=== PATIENT | female | born 1985 | race Two or more races ===

== ENCOUNTER → 2023-05-06 12:43 | Outpatient (BNVA) | payer OTHER, SELFPAY | PROVIDERS: Visit Provider Physician Assistant ==

== ENCOUNTER 2023-06-11 13:17 | Outpatient (AMB) | payer OTHER, SELFPAY ==
--- NOTE | 2023-06-11 13:28 | MHC.OFFVISWM ---
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 40.1 Boot Liner Maker Required: No Allergies cat dander Allergy (Mild, Verified 05/06/23 13:19) Itchy Eyes dog Allergy (Mild, Uncoded 05/06/23 13:19) Itchy Eyes Medication List - Last Reconciled 06/11/23 by TIA Hicks albuterol sulfate 90 mcg/actuation (Ventolin HFA) 2 puffs inhalation QID PRN budesonide-formoterol 160-4.5 mcg/actuation (Symbicort) 2 puffs inhalation BID montelukast 10 mg PO DAILY naproxen 500 mg PO BID omeprazole 20 mg PO BID HPI HPI Comments History of Present Illness Details Pt is here to start the [facility] weight loss program. She heard about our program from her chairman & co founder at [facility], Dr Pak. Her goal is to lose weight and achieve a healthy lifestyle as well as to improve, if not resolve, obesity related medical conditions, including murali. She reports first being concerned about her weight about a year ago, highest weight to date was 260. Initial weight upon presentation to the [facility] on 05/06/23 was 248.2 pounds with a BMI of 40.1. She has made the effort to cut out soda. Current weight is 244.2 pounds with a BMI of 39.4. She has tried multiple methods of weight loss including fad diets without permanent results. She lives with her family. 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 She has had difficulty with asthma and has had to have multiple courses of prednisone She wakes at:?7am, and goes to bed at?9 pm. Dinner is at 6 pm. Breakfast: coffee w espresso shot, eggs, AM snack: skip Lunch: subway PM snack: skip Dinner: rice, beans, chicken, pork chops After dinner: yogurt Other snacks: none Liquids: 48-56 oz water, no soda, no juice Alcohol/marijuana/tobacco intake: none Exercise: [employer], treadmill, elliptical GERD score: 37 MICHAELA score: 0 ESS score: 12 QOL score: 89 [facility] Surgical History Hx of hernia repair Family History Mother Heart problem Thyroid condition Hypertension Diabetes Father No problems noted. Social History Alcohol intake: never Patient Tobacco Use Status: Never used Tobacco Review of Systems Const All systems reviewed & are unremarkable except as noted in HPI and below Physical Exam Vital Signs: Last Vital Signs Temp 98.8 F 06/11/23 13:38 Pulse 79 06/11/23 13:38 BP 189/65 H 06/11/23 13:38 Pulse Ox 95 06/11/23 13:38 Oxygen Delivery Method Room Air 06/11/23 13:38 BMI result Body Mass Index 39.4 Const General: cooperative, healthy appearing and no acute distress Orientation/consciousness: patient oriented x3 HEENT Head: Yes normal to inspection Ears: hearing grossly normal bilaterally General nose exam: Normal external nose present Face and sinus: Yes normal facial exam Eyes General: appearance normal, both eyes and all related structures Resp Effort & Inspection: normal respiratory effort Auscultation: clear to auscultation bilaterally Cardio Rate: regular rate Rhythm: regular rhythm Heart sounds: S1 normal heart sound present and S2 normal heart sound present GI Inspection: Yes normal to inspection, No distended and Yes obesity Palpation (GI): Soft to palpation, nontender and no guarding Auscultation: normal bowel sounds Skin General skin exam: no rashes or lesions noted Neuro General: patient oriented x3 Extrem General: No edema Psych Appearance: grossly normal Mental Status: mental status grossly normal Speech and movement: Normal speech and movement present Affect: normal affect Attitude: cooperative Assessment & Plan Assessment & Plan (1) Obesity (BMI 30-39.9): Code(s): E66.9 - Obesity, unspecified Plan: This is a?38 yo female who will start our SWL program to prepare for bariatric surgery.? Blood work, h pylori , CXR, ECG, Abd US and UGI have been ordered. She is being scheduled for RD and BH initial consultations. She will start SWL classes and watch the first three videos before her next appointment. ? Adequate sleep of 7-8 hours per night discussed, awakening at 7 am and going to bed at 9 pm ? Purchase body composition analyzer scale (Beto nunez or Yousif recommended) and check weight weekly. The best time to do this is first thing in the morning after going to the bathroom. 1. Nutritional counseling: Be sure to careful read the number of scoops per shake Start with 1 Celebrate Rebuild shake ([facility] [employer] or [employer]), (2 scoop2 in 20 oz low fat unsweetened almond milk) at 8am-10am 2 protein bar (CoolSystemste protein bars at [facility] [employer] or [employer]) at 11pm-1pm and 3pm-5pm. Dinner at 6pm (9 forks of protein and 9 forks of salad/vegetables). Meal to include lean meat (beef, fish, pork, turkey, chicken), cooked vegetables or a salad with olive oil and/or fruits (berries, pears, apples, kiwi). Avoid salt, breads, potatoes, rice, pasta, desserts. Try to drink 64 oz of water daily and avoid soda and juices. ?2. Each shake would be drunk slowly, like coffee in a period of 2 hours. ?3. Cut each bar in 4 pieces and eat each piece in 30 min ?to make each bar last 2 hours. ?4. I emphasized the importance of measuring accurately the food portion and measure it carefully when serving the food on the plate ?5. The meal portions include 9 full-size forks of meat and 9 full-size forks of salad. You always eat the meat portion but you can replace up to half of the forks of salad/vegetables with rice, potatoes or pasta, or a fruit ?if you like. The less you do it the better weight loss will be. ?6. One full-size fork is what can be scooped on the fork without falling aside and not what can be bit with the fork. Use regular forks like those you find in a typical restaurant. ?7.? Please send me weight measurements as soon as possible and then once a week. Always include your diet and exercise plan. Alternatively come weekly at the office for weight checks and send me the measurements. ?8. Exercise counseling: Begin by watching a stretching for beginners video. Start slowly and begin to stretch your muscles. You should do this before and after each exercise session to prevent injury. Please continue to go to [facility] near your home. Ask the software development manager or one of the trainers how to use the machines if you are unfamiliar with them. Start elliptical with a resistance of 2. Increase resistance by 1 every 3 min to your most comfortable resistance with a max resistance of 8. Reduce the resistance by 1 every 3 minutes back down to 2 and repeat cycles for 300 calories. Alternatively, start treadmill with a speed of 3.0 and incline of 0, increasing incline by 1 every 3 minutes to the highest comfortable level (max 6 for now) then decrease in the same fashion. Repeat process to a goal of 300 calories. Goal of 2000 calories burned or more weekly. You may also consider use of the stationary bike. The easiest would be to chose the fat-burn or interval training program on the machine and do this until you reach the 300 calorie goal. Alternatively, you can manually adjust the resistance in a similar fashion as mentioned above, (resistance of 2-8 with a goal speed of 12 mph). Tracking calories is essential. 9. Alternatively start walking outside daily, tracking calories with a goal of 300 calories per day, daily. You can download the paul [employer] which can track your time, distance and calories while walking outside. You press start in the paul when you start and then stop when you are finished. 10.? It is important to avoid for at least 18 months postoperatively and it has been discussed at the information session 11. Please get labs, EKG and chest X-Ray within 1 week. 12. Discussed and answered all questions regarding?obtained consent to participate in the [place] [facility]?Registry. 13. Please follow the diet plan exactly, without any change. If you do not like something about the plan or you feel hungry, you need to communicate with me so I can help you revise the plan. You should not change the plan yourself. Text me at [phone] 14. Goal is to lose at least 12 pounds in the first month 15. Goal is to lose 10% of your weight before surgery, which is about 24 lbs. Ultimate weight goal: 224 lbs before surgery Patient is morbidly obese and is not considered stable at this time.?I spent a total of 70 minutes reviewing/updating records, examining the patient and counseling the patient on weight management as detailed above. Orders: Orders IRON PROFILE Today E66.9 - Obesity, unspecified Ferritin Today E66.9 - Obesity, unspecified TSH reflex Free T4 Today E66.9 - Obesity, unspecified H Pylori Breath Test Today E66.9 - Obesity, unspecified ECG 12 lead EKG Today E66.9 - Obesity, unspecified FL upper GI w air Today E66.9 - Obesity, unspecified Insulin Today E66.9 - Obesity, unspecified Lipid Panel Today E66.9 - Obesity, unspecified Complete Blood Count Auto Diff Today E66.9 - Obesity, unspecified Vitamin B12 and Folate Today E66.9 - Obesity, unspecified Zinc Today E66.9 - Obesity, unspecified Comprehensive Met. Panel Today E66.9 - Obesity, unspecified Vitamin B1 Today E66.9 - Obesity, unspecified Vitamin A Today E66.9 - Obesity, unspecified C Reactive Protein Today E66.9 - Obesity, unspecified PTHI Today E66.9 - Obesity, unspecified Vitamin D 25-OH Total Today E66.9 - Obesity, unspecified Hemoglobin A1c Today E66.9 - Obesity, unspecified US abdomen comp w elastography Today E66.9 - Obesity, unspecified XR chest 2V Today E66.9 - Obesity, unspecified Referrals Behavioral Health Referral E66.9 - Obesity, unspecified Nutrition/Dietitian Referral E66.9 - Obesity, unspecified Coding Level of Care Code New Pt Level 5 (06876) Diagnoses Obesity (BMI 30-39.9) E66.9 Time Spent (min) 70
[2023-06-11 13:38] VITALS: BP 189/65; PULSE 79; TEMP 37.1; O2SAT 95; BMI 39.4
== END 2023-06-11 14:50 | disposition home or self-care (01) ==
PROVIDERS: Visit Provider Physician Assistant Surgical
DX: E66.9 Obesity, unspecified (principal); Z68.39 Body mass index [BMI] 39.0-39.9, adult
CPT/HCPCS: 99205

== ENCOUNTER → 2023-06-11 13:17 | Outpatient (BNVA) | payer OTHER, SELFPAY | PROVIDERS: Visit Provider Physician Assistant Surgical ==

== ENCOUNTER 2023-07-10 13:22 | Outpatient (AMB) | payer OTHER, SELFPAY ==
--- NOTE | 2023-07-10 13:20 | A.OFFWM_ITS ---
Intake Intake Visit Reasons: VIDEO BH Intake Allergies cat dander Allergy (Mild, Verified 05/06/23 13:19) Itchy Eyes dog Allergy (Mild, Uncoded 05/06/23 13:19) Itchy Eyes PFSH Surgical History Hx of hernia repair Family History Mother Heart problem Thyroid condition Hypertension Diabetes Father No problems noted. Social History Alcohol intake: never Patient Tobacco Use Status: Never used Tobacco Behavioral Health Assessment Weight Management Therapy Therapy Notes Details Pt stated that she is looking to have weight loss surgery to help improve her health and quality of life. She reported suffering from severe asthma. Pt denied any mental health health struggles or treatment. She is not in therapy denied every being so. She has no reported hx of problems with drugs or alcohol. Presenting Concerns Referral Source provider Reason for referral weight loss surgery evaluation Precipitating Event obesity Living Situation Current Living Situation Rent At risk of losing current housing? No Satisfied with current living situation? Yes Comments Pt stated that she believes there might be mold in the house. She lives with her children ages 19, 16, 15, and 14 years old. Two of her children have autism and one is severely asthmatic. Food/Weight/Diet Expectations of change weight loss and maintenance History/Relationship with food Pt denied any disordered eating or issues with overeating/emotional eating. She did drink soda and coffee always bt recently stopped. History/Relationship with weight Patient stated that she was always between 160-180lbs until last few years when she struggled with covid and asthma medication. History/Relationship with dieting She reported being able to loose weigh in the past with exercise and diet however has not been successful recently. Binge Eating Do you frequently eat large amounts of food in short periods of time, not feeling physically hungry? No Do you feel out of control when you eat a large amount of food in a short period of time? No Do you eat large amounts of food rapidly and typically alone? No Night Eating Do you wake up at least once during the night to eat? No If you wake up in the night, do you find that it is necessary to eat something in order to fall back asleep? No Do you have little or no appetite in the morning and feel very hungry in the evening, often overeating between dinner and when you go to bed? No Social History Family history and relationship Pt was born and raised in [place], she has been here for 12 years. Her parents live in [place]. She has one sister who lives 5 minutes away. Pt has 4 children. 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 none known Education Preferred learning style Auditory, Verbal, Written, Learn by doing and Visual Currently enrolled in educational program? No Interested in further educational program? 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 Also works at [employer] on the weekends temporarily. 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 No Meaningful activities [employer], kids activities Financial Situation Describe current financial situation Occasional struggle Financial assistance? None Service Service? No Mental Health and Addiction Treatment Current/Past substance abuse? No Current/Past addictive behavior concerns? No Medical and Physical Health Summary Physical exam in the last year? Yes Pain Screening Current pain? No Pain in the last few months? No Medications Is the patient compliant with medications? Yes Does the patient have Waddell Guardian in place? Not applicable Does the patient use complimentary health approaches? No Questionnaires PHQ-9 Over the last 2 weeks, how often have you been bothered by any of the following problems? 1. Little interest or pleasure in doing things: not at all 2. Feeling down, depressed, or hopeless: not at all 3. Trouble falling or staying asleep, or sleeping too much: several days 4. Feeling tired or having little energy: several days 5. Poor appetite or overeating: not at all 6. Feeling bad about yourself - or that you are a failure or have let yourself or your family down: not at all 7. Trouble concentrating on things, such as reading the newspaper or watching television: not at all 8. Moving or speaking so slowly that other people could have noticed. Or the opposite - being so fidgety or restless that you have been moving around a lot more than usual: not at all 9. Thoughts that you would be better off or of hurting yourself in some way: not at all Total score: 2 Depression Screening Interpretation: Negative Depression Screening Done: Yes Source: Developed by Drs. Robin Vanegas, Mary Dorado, Lupillo Elias and colleagues, with an educational maksim from [employer]. Binge Eating Scale Group 1 A. I don't feel self-conscious about my wt. or body size when I'm with others. B. I feel concerned about how I look to others, but it normally does not make me fell disappointed with myself C. I do get self-conscious about my appearance and wt. which makes me feel disappointed in myself. D. I feel very self-conscious about my wt. and frequently I feel intense shame and disgust for myself. I try to avoid social contacts because of my self- consciousness. Response Group 1: A Group 2 A. I don't have any difficulty eating slowly in the proper manner. B. Although I seem to gobble down foods, I don't end up feeling stuffed because of eating to much. C. At times, I tend to eat quickly and then, I feel uncomfortably full afterwards. D. I have the habit of bolting down my food, without really chewing it. When this happens I usually feel uncomfortably stuffed because I've eaten to much. Response Group 2: A Group 3 A. I feel capable to control my eating urges when I want to. B. I feel like I have failed to control my eating more than the average person. C. I feel utterly helpless when it comes to feeling in control of my eating urges. D. Because I feel so helpless about controlling my eating I have become very desperate about trying to get control. Response Group 3: A Group 4 A. I don't have the habit of eating when I'm bored. B. I sometimes eat when I'm bored, but often I'm able to get busy and get my mind off food. C. I have a regular habit of eating when I'm bored, but occasionally, I can use some other activity to get my mind off eating. D. I have a strong habit of eating when I'm bored. Nothing seems to help me breath the habit. Response Group 4: A Group 5 A. I'm usually physically hungry when I eat something. B. Occasionally, I eat something on impulse even though I really am not hungry. C. I have the regular habit of eating foods, that I might not really enjoy, to satisfy a hungry feeling even though physically, I don't need the food. D. Although I'm not physically hungry, I get a hungry feeling in my mouth that only seems to be satisfied when I eat a food, like sandwich, that fills my mouth. Sometimes, when I eat the food to satisfy my mouth hunger, I then spit the food out so I won't gain weight. Response Group 5: A Group 6 A. I don't feel any guilt or self-hate after I overeat. B. After I overeat, occasionally I feel guilt or self-hate. C. Almost all the time I experience strong guilt or self-hate after I overeat. Response Group 6: B Group 7 A. I don't lose total control of my eating when dieting even after periods when I overeat. B. Sometimes when I eat a forbidden food on a diet, I feel like I blew it and eat even more. C. Frequently, I have the habit of saying to myself, I've blown it now, why not go all the way, when I overeat on a diet. When that happens I eat more. D. I have a regular habit of starting a strict diets for myself but I break the diets by going on an eating binge. My life seems to be either a feast or famine. Response Group 7: B Group 8 A. I rarely eat so much food that I feel uncomfortably stuffed afterwards. B. Usually about once a month, I each such a quantity of food, I end up feeling very stuffed. C. I have regular periods during the month when I eat large amounts of food, either at mealtime or at snacks. D. I eat so much food that I regularly feel quite uncomfortable after eating and sometimes a bit nauseous. Response Group 8: A Group 9 A. My level of calorie intake does not go up very high or go down very low on a regular basis. B. Sometimes after I overeat, I will try to reduce my caloric intake to almost nothing to compensate for the excess calories I've eaten. C. I have a regular habit of overeating during the night. It seems that my routine is not to be hungry in the morning but overeat in the evening. D. In my adult years, I have had week-long periods where I practically starve myself. This follows periods when I overeat. It seems I live a life of either feast or famine. Response Group 9: A Group 10 A. I usually am able to stop eating when I want to. I know when enough is enough. B. Every so often, I experience a compulsion to eat which I can't seem to control. C. Frequently, I experience strong urges to eat which I seem unable to control, but at other times I can control my eating urges. D. I feel incapable of controlling urges to eat. I have a fear of not being able to stop eating voluntarily. Response Group 10: A Group 11 A. I don't have any problem stopping eating when I feel full. B. I usually can stop eating when I feel full but occasionally overeat leaving me feeling uncomfortably stuffed. C. I have a problem stopping eating once I start and usually I feel uncomfortably stuffed after I eat a meal. D. Because I have a problem not being able to stop eating when I want, I sometimes have to induce vomiting to relieve my stuffed feeling. Response Group 11: A Group 12 A. I seem to eat just as much when I'm with others, Family social gatherings as when I'm by myself. B. Sometimes, when I'm with other persons, I don't eat as much as I want to eat because I'm self-conscious about my eating. C. Frequently, I eat only a small amount of food when others are present, because I'm very embarrassed about my eating. D. I feel so ashamed about overeating that I pick times to overeat when I know no one will see me. I feel like a closet eater. Response Group 12: A Group 13 A. I eat three meals a day with only an occasional between meal snack. B. I eat 3 meals a day, but I also normally snack between meals. C. When I am snacking heavily, I get in the habit of skipping regular meals. D. There are regular periods when I seem to be continually eating, with no planned meals. Response Group 13: B Group 14 A. I don't think much about trying to control unwanted eating urges. B. At least some of the time, I feel my thoughts are pre-occupied with trying to control my eating urges. C. I feel that frequently I spend much time thinking about how much I ate or about trying not to eat anymore. D. It seems to me that most of my waking hours are pre-occupied by thoughts about eating or not eating. I feel like I'm constantly struggling not to eat. Response Group 14: B Group 15 A. I don't think about food a great deal. B. I have strong craving for food but they last only for brief periods of time. C. I have days when I can't seem to think about anything else but food. D. Most of my days seem to be pre-occupied with thoughts about food. I feel like I live to eat. Response Group 15: B Group 16 A. I usually know whether or not I'm physically hungry. I take the right portion of food to satisfy me. B. Occasionally, I feel uncertain about knowing whether or not I'm physically hungry. A these times it's hard to know how much food I should take to satisfy me. C. Even though I might know how many calories I should eat, I don't have any idea what is a normal amount of food for me. Response Group 16: A Binge Eating Score: 5 Score less than 17 Minimal Risk Score between 18-26 Moderate Risk Score between 27-46 High Risk Assessment & Plan Assessment & Plan (1) Adjustment disorder, unspecified: Code(s): F43.20 - Adjustment disorder, unspecified Plan Patient has no mental health issues or reported difficulties with food. She reported mostly average weight for her or slightly overweight until her asthma worsened. She is cleared for surgery when ready. Telehealth Telehealth Location of provider rendering services: other Location of patient: address on file Patient Identification confirmed using: Name, : Yes Telehealth method: video Patient verbally consented to treatment: Yes Patient verbally consented to billing insurance company: Yes Patient informed of any privacy concerns related to visit: Yes Minutes spent on Phone/Video with Pt.: 45 Coding Level of Care Code Tele Psy Diag Eval (24480) Diagnoses Adjustment disorder, unspecified F43.20 Time Spent (min) 45
== END 2023-07-10 13:41 | disposition home or self-care (01) ==
LOC: HO.HBST 13:22
PROVIDERS: Visit Provider Counselor Mental Health
DX: F43.20 Adjustment disorder, unspecified (principal)
CPT/HCPCS: 90791

== ENCOUNTER → 2023-07-10 13:22 | Outpatient (BNVA) | payer OTHER, SELFPAY | PROVIDERS: Visit Provider Counselor Mental Health ==

== ENCOUNTER 2023-07-14 08:07 | Outpatient (REF) | payer OTHER, SELFPAY ==
--- NOTE | ~2023-07-14 | US_ITS ---
EXAMINATION: US COMPLETE ABDOMEN WITH LIVER ELASTOGRAPHY CLINICAL INFORMATION: Obesity. COMPARISON: None available. TECHNIQUE: Real-time imaging of the abdominal viscera. Noninvasive ultrasound liver fibrosis assessment is performed using Kerri ElastPQ point quantification shear wave elastography (2D-SWE) with a C5-2 MHz transducer. Multiple elastography samples are obtained. FINDINGS: PANCREAS: Largely obscured by overlapping bowel gas. ABDOMINAL AORTA: The proximal segment is obscured by overlapping bowel gas. The middle and distal aortic segments are normal in caliber. INFERIOR VENA CAVA: Visualized portions are normal. LIVER: Normal. The liver demonstrates normal size, contour and echogenicity. No focal lesion or intrahepatic biliary duct dilatation. The right lobe measures 14.9 cm in length. The left lobe measures 9.2 cm in length. Portal flow is towards the liver (hepatopetal). Shear wave liver elastography median stiffness is 1.3 m/s (reference: normal median stiffness is 1.3 m/s or less). IQR/median stiffness to assess sampling precision is 0.08 (reference: good quality data set is IQR/median stiffness of 0.15 or less). GALLBLADDER: Normal. The gallbladder is physiologically distended without evidence of stones, sludge, polyps, wall thickening or pericholecystic fluid. COMMON BILE DUCT: Normal in caliber measuring 0.3 cm in diameter. RIGHT KIDNEY: Normal. No hydronephrosis. No renal calculi or focal parenchymal lesions. The kidney measures 10.6 cm in maximum dimension. LEFT KIDNEY: Normal. No hydronephrosis. No renal calculi or focal parenchymal lesions. The kidney measures 11.6 cm in maximum dimension. SPLEEN: Normal. The spleen measures 10.4 cm in maximum dimension. FREE FLUID: None. US/US abdomen comp w elastography IMPRESSION: 1. Liver elastography: 2. Technically limited ultrasound examination of the pancreas and abdominal great vessels. REFERENCE: Society of Radiologists in Ultrasound Liver Stiffness Thresholds (2020): LIVER STIFFNESS THRESHOLDS: *Liver Stiffness equal or less than 1.3 m/s: High probability of being normal. *Liver Stiffness less than 1.7 m/s: In the absence of other known clinical signs, rules out compensated advanced chronic liver disease. *Liver Stiffness 1.7-2.1 m/s: Suggestive of compensated advanced chronic liver disease but need further test for confirmation. *Liver Stiffness over 2.1 m/s: Rules in compensated advanced chronic liver disease. *Liver Stiffness over 2.4 m/s: Suggestive of clinically significant portal hypertension. QUALITY OF DATA SET: *IQR/Median value equal or less than 0.15 implies a quality data set. *IQR/Median value over 0.15 implies a poor quality data set. SIGNIFICANT CHANGE FROM PRIOR EXAM: Significant change if liver stiffness measurement is 10% or greater from prior exam. OTHER CONSIDERATIONS: The stage of liver fibrosis may be overestimated in the setting of acute hepatitis, liver inflammation, elevated liver function tests, hepatic vascular congestion, obstructive cholestasis, non-fasting state, and infiltrative diseases such as amyloidosis and lymphoma. In some patients with NAFLD, the liver stiffness thresholds for compensated advanced chronic liver disease may be lower. In causes other than viral hepatitis and NAFLD, liver stiffness thresholds are not well established.
[2023-07-14 09:27] LABS: MANUAL DIFF FLAG NO
[2023-07-14 10:24] LABS: Basophils Absolute Auto 0.1 X10*3/uL (0.0-0.2); Basophils Percent Auto 0.9 % (0-2); Eosinophils Absolute Auto 0.5 X10*3/uL (0.0-0.4); Eosinophils Percent Auto 5.3 % (0-4); Hematocrit 39.3 % (37.0-47.0); Hemoglobin 12.2 g/dl (12.0-16.0); Imm Gran Abs Auto 0.03 X10*3/uL (0.00-0.03); Imm Gran Pct Auto 0.3 % (0.0-0.4); Lymphocytes Absolute Auto 2.4 X10*3/uL (1.2-4.9); Lymphocytes Percent Auto 27.6 % (20-40); Mean Corpuscular Hemoglobin 27.8 pg (27.0-33.0); Mean Corpuscular Volume 89.5 fL (80.0-98.0); Mean Platelet Volume 9.9 fL (9.4-12.3); Monocytes Absolute Auto 0.5 X10*3/uL (0.1-1.2); Monocytes Percent Auto 6.1 % (2-11); Neutrophils Absolute Auto 5.2 x10*3/uL (2.0-8.3); Neutrophils Percent Auto 59.8 % (45-73); Platelet Count 354 X10*3/uL (160-400); Red Blood Count 4.39 X10*6/uL (4.20-5.50); Red Cell Distribution Width 11.9 % (11.0-16.0); White Blood Count 8.7 X10*3/uL (4.8-10.8)
[2023-07-14 10:31] LABS: Estimated Average Glucose 94 mg/dL; Hemoglobin A1c % 4.9 % (<6.0)
[2023-07-14 12:32] LABS: Alanine Aminotransferase 16 U/L (0-31); Albumin Level 4.1 g/dL (3.5-5.0); Alkaline Phosphatase 85 U/L (39-117); Anion Gap 13 (12-20); Aspartate Amino Transferase 16 U/L (5-31); Bilirubin Total 0.4 mg/dL (0.0-1.0); Blood Urea Nitrogen 12 mg/dL (9-16); C Reactive Protein 0.99 mg/dL (< or = 0.50); Calcium 9.3 mg/dL (8.4-10.2); Carbon Dioxide 24 mmol/L (22-29); Chloride 107 mmol/L (96-108); Cholesterol 167 mg/dL (<200); Estimated Glomerular Filt Rate > 60; Glucose Random 84 mg/dL (60-115); HDL Cholesterol 40 mg/dL (>40); Iron 84 mcg/dL (30-160); LDL Cholesterol Calculated 109 mg/dL (<100); Percent Iron Saturation 38 % (15-50); Sodium 140 mmol/L (135-145); Total Iron Binding Capacity 221 mcg/dL (228-428); Total Protein 7.6 g/dL (6.5-8.0); Triglycerides 90 mg/dL (<150); Unsaturated Iron Binding 137 ug/dL
[2023-07-14 12:46] LABS: Folate 10.8 ng/mL (> or = 4.0); Vitamin B12 548 pg/mL (200-900)
[2023-07-14 12:59] LABS: Ferritin 95 ng/mL (10-122); Insulin 14 uU/mL (2-29); TSH reflex Free T4 1.58 uIU/mL (0.32-4.0); Vitamin D 25-OH Total 16.2 ng/mL (>30)
[2023-07-16 02:44] LABS: Calcium (PTHI) 9.6 mg/dL (8.6-10.2); PTHI 62 pg/mL (16-77)
[2023-07-17 06:03] LABS: Zinc 68 mcg/dL (60-130)
[2023-07-17 20:39] LABS: Vitamin A 31 mcg/dL (38-98)
[2023-07-19 10:28] LABS: Vitamin B1 11 nmol/L (8-30)
== END 2023-07-14 08:08 | disposition home or self-care (01) ==
LOC: HO.US 08:07
PROVIDERS: Visit Provider Physician Assistant Surgical
DX: E66.9 Obesity, unspecified (principal)
CPT/HCPCS: 36415; 76705; 76981; 80053; 80061; 82306; 82607; 82728; 82746; 83036; 83525; 83540; 83970; 84425; 84443; 84590; 84630; 85025; 86140

== ENCOUNTER 2023-07-17 08:25 | Outpatient (REF) | payer OTHER, SELFPAY ==
--- NOTE | ~2023-07-17 | XR_ITS ---
EXAMINATION: XR CHEST CLINICAL INFORMATION: Obesity unspecified COMPARISON: None available. TECHNIQUE: 2 views of the chest were obtained. FINDINGS: There is no gross pneumothorax. Evaluation of the cardiomediastinal silhouette is limited due to patient rotation, although heart size is normal. No pleural effusion. Mild degenerative changes in the thoracic spine. Linear radiodense devices project over the bilateral breasts shadows and correlation with the clinical exam recommended to confirm etiology and location. No focal consolidation to suggest pneumonia. XR/XR chest 2V IMPRESSION: Linear radiodense devices project over the bilateral breasts shadows and correlation with the clinical exam recommended to confirm etiology and location. No focal consolidation to suggest pneumonia.
--- NOTE | 2023-07-17 08:31 | ECG_ITS ---
Test Reason : obesity Blood Pressure : / mmHG Vent. Rate : 070 BPM Atrial Rate : 070 BPM P-R Int : 166 ms QRS Dur : 078 ms QT Int : 362 ms P-R-T Axes : 061 044 037 degrees QTc Int : 390 ms Normal sinus rhythm Normal ECG No previous ECGs available Referred By: Rogelio Christensen Electronically Signed By:VENU BEYER MD
[2023-07-20 10:10] LABS: H Pylori Breath Test Negative (Negative)
== END 2023-07-17 08:26 | disposition home or self-care (01) ==
LOC: HO.XRAY 08:25
PROVIDERS: Visit Provider Physician Assistant Surgical
DX: E66.9 Obesity, unspecified (principal); Z11.0 Encounter for screening for intestinal infectious diseases
CPT/HCPCS: 71046; 83013; 93005; 99211

== ENCOUNTER 2023-08-26 07:44 | Outpatient (REF) | payer OTHER, SELFPAY ==
--- NOTE | ~2023-08-26 | FL_ITS ---
EXAMINATION: XR FLUOROSCOPY UPPER GI WITH AIR CLINICAL INFORMATION: Preop evaluation prior to bariatric surgery COMPARISON: None TECHNIQUE: Fluoroscopic air contrast upper GI examination was performed utilizing standard techniques with thin and thick barium and effervescent granules. Numerous spot images were obtained. FINDINGS: Dual and single contrast images of the esophagus demonstrate normal caliber, contour, and mucosal pattern. No evidence of stricture, mass, or ulcerations identified. Primary esophageal peristalsis was normal. Mild nonpropulsive tertiary contractions are seen in the distal esophagus. A small type I hiatal hernia is present. Gastroesophageal reflux is seen up to level of thoracic inlet. Dual contrast and single contrast images of the stomach demonstrated grossly normal contour of the stomach with irregular pattern of mucosal seen predominantly in the fundus and body, highly suspicious for erosive or atrophic gastritis. No definite ulcers seen. Contrast freely passed into the gastric antrum and duodenal bulb without delay. Single and air-contrast images of the duodenal bulb demonstrate no abnormality. The duodenal sweep has a normal appearance, course, and mucosal fold appearance. The imaged proximal jejunum has a normal fold pattern and caliber. FLUOROSCOPY TIME: 4 minutes 32 seconds. Number of Spot Images: 17 Number of Cine: 8 DOSE AREA PRODUCT: 1541 uGy-m2 (microgray-meter squared) FL/FL upper GI w air IMPRESSION: 1. Mild nonpropulsive tertiary contractions of the distal esophagus consistent with mild esophageal dysmotility 2. Small type I hiatal hernia 3. Significant gastroesophageal reflux. 4. Findings of the fundus and body of the stomach highly suspicious for atrophic and/or erosive gastritis. Recommend correlation with EGD. This procedure was performed by Chandler Beasley PA-C, and supervised by Dr. Bagley
== END 2023-08-26 07:45 | disposition home or self-care (01) ==
LOC: HO.XRAY 07:44
PROVIDERS: Visit Provider Physician Assistant Surgical
DX: E66.9 Obesity, unspecified (principal)
CPT/HCPCS: 74246

== ENCOUNTER → 2023-08-26 07:45 | Outpatient (BNV) | payer OTHER, SELFPAY | PROVIDERS: Visit Provider Radiology Diagnostic Radiology | DX: Z01.818 Encounter for other preprocedural examination (principal); E66.9 Obesity, unspecified | CPT/HCPCS: 74246 ==

== ENCOUNTER 2023-10-25 19:08 | Emergency (ER) | payer OTHER, SELFPAY ==
--- NOTE | ~2023-10-25 | CT_ITS ---
EXAMINATION: CT HEAD WITHOUT CONTRAST CLINICAL INFORMATION: Left arm and leg paresthesia. COMPARISON: None available. TECHNIQUE: Contiguous axial imaging was performed from the skull base to vertex without intravenous administration of contrast. This CT examination was performed using dose optimization techniques as appropriate, variously including the following: *Automated exposure control. *Adjustment of mA and/or kV according to patient size (this includes techniques or standardized protocols for targeted exams where dose is matched to indication/reason for exam; i.e. extremities or head). *Use of iterative reconstruction technique. DLP: 774 mGy-cm FINDINGS: There is no evidence of acute intracranial hemorrhage or edematous territorial infarction. Borjas-white matter differentiation is preserved. There is no abnormal attenuation within the brain parenchyma. The ventricles are normal in morphology and size. No evidence for obstructive hydrocephalus. No abnormal mass effect or midline shift. No extra-axial fluid collections. No acute soft tissue or osseous abnormalities. Moderate mucosal thickening of the paranasal sinuses. The mastoid air cells and middle ear cavities are clear. CT/CT head/brain wo IV con IMPRESSION: 1. No evidence of acute intracranial hemorrhage or edematous territorial infarction. 2. Moderate sinonasal mucosal disease.
[2023-10-25 19:16] VITALS: BP 108/73; PULSE 89; RESP 20; TEMP 36.9; O2SAT 98; BMI 37.3
--- NOTE | 2023-10-25 19:24 | ECG_ITS ---
Test Reason : WEKANESS Blood Pressure : / mmHG Vent. Rate : 076 BPM Atrial Rate : 076 BPM P-R Int : 152 ms QRS Dur : 080 ms QT Int : 344 ms P-R-T Axes : 068 029 025 degrees QTc Int : 387 ms Normal sinus rhythm Normal ECG When compared with ECG of 17-JUL-2023 08:30, No significant change was found Referred By: Generic ED Physician Electronically Signed By:Andrea Alexander
--- NOTE | 2023-10-25 19:49 | MHC.EDTECH ---
Patient brought into triage area, EKG taken per order and signed by provider. Labs and a urine sample obtained and sent to lab,patient brought to ED bed 8
[2023-10-25 19:53] LABS: MANUAL DIFF FLAG NO
[2023-10-25 19:59] LABS: Appearance Urine Clear; Basophils Absolute Auto 0.1 X10*3/uL (0.0-0.2); Color Urine Yellow; Eosinophils Absolute Auto 0.4 X10*3/uL (0.0-0.4); Eosinophils Percent Auto 4.4 % (0-4); Glucose Urine UA Negative (Negative); Hematocrit 38.2 % (37.0-47.0); Hemoglobin 11.9 g/dl (12.0-16.0); Imm Gran Abs Auto 0.03 X10*3/uL (0.00-0.03); Imm Gran Pct Auto 0.3 % (0.0-0.4); Leukocyte Esterase Urine Trace (Negative); Lymphocytes Absolute Auto 2.7 X10*3/uL (1.2-4.9); Lymphocytes Percent Auto 30.8 % (20-40); Mean Corpuscular HGB Conc 31.2 g/dl (31.0-35.0); Mean Corpuscular Hemoglobin 27.6 pg (27.0-33.0); Mean Corpuscular Volume 88.6 fL (80.0-98.0); Mean Platelet Volume 9.6 fL (9.4-12.3); Monocytes Absolute Auto 0.9 X10*3/uL (0.1-1.2); Monocytes Percent Auto 10.4 % (2-11); Neutrophils Absolute Auto 4.7 x10*3/uL (2.0-8.3); Neutrophils Percent Auto 53.1 % (45-73); Nitrite Urine Negative (Negative); PH 6.5 (5.0-9.0); Platelet Count 326 X10*3/uL (160-400); Red Blood Count 4.31 X10*6/uL (4.20-5.50); Red Cell Distribution Width 12.3 % (11.0-16.0); UMIC TRIGGER UACC YES; Urine Blood Large (3+) (Negative); Urine Ketones Negative (Negative); Urine Protein Negative (Neg-Trace); White Blood Count 8.8 X10*3/uL (4.8-10.8)
[2023-10-25 20:01] LABS: UPreg QC Valid YES; Urine Pregnancy NEGATIVE (NEGATIVE)
[2023-10-25 20:02] VITALS: BP 126/78; PULSE 74
--- NOTE | 2023-10-25 20:03 | ED_ITS ---
HPI - General Adult General Chief complaint: Weakness Stated complaint: feels weak/dizzy Time Seen by Provider: 10/25/23 19:55 Source: patient Mode of arrival: ambulatory Limitations: no limitations History of Present Illness HPI narrative: patient comes to the emergency room with multiple complaints. Patient complaining of headache, sinus pressure, coughing, diffuse body aches, feeling unsteady after drinking 1 sip of alcohol with azithromycin. Complaining of left arm and leg tingling sensation. Patient states that her son recently tested positive for COVID and since then she has had URI symptoms. Patient states that the main reason she came is because any time that she stands up, she feels like she is going to pass out Related Data Home Medications Medication Instructions Recorded Confirmed albuterol sulfate 90 mcg/actuation 2 puff inhalation QID PRN cough 05/06/23 06/11/23 aerosol inhaler (Ventolin HFA) budesonide-formoterol HFA 160 2 puff inhalation BID 05/06/23 06/11/23 mcg-4.5 mcg/actuation aerosol inhaler (Symbicort) naproxen 500 mg tablet 500 mg PO BID 05/06/23 06/11/23 omeprazole 20 mg tablet,delayed 20 mg PO BID 05/06/23 06/11/23 release montelukast 10 mg tablet 10 mg PO DAILY 06/11/23 06/11/23 Previous Rx's Medication Instructions Recorded vitamin A palmitate 3,000 mcg 3,000 mcg PO DAILY 90 days #90 caps 07/18/23 (10,000 unit) capsule cholecalciferol (vitamin D3) 125 125 mcg PO DAILY 90 days #90 caps 10/14/23 mcg (5,000 unit) capsule cefuroxime axetil 500 mg tablet 500 mg PO BID #14 tabs 10/25/23 nirmatrelvir 300 mg (150 mg See Rx Instructions PO .COMPLEX 10/25/23 x2)-ritonavir 100 mg tablet,dose #30 ea pack (Paxlovid) Allergies Allergy/AdvReac Type Severity Reaction Status Date / Time cat dander Allergy Mild Itchy Eyes Verified 10/25/23 19:16 diphenhydramine Allergy Anaphylaxis Verified 10/25/23 19:16 [From Benadryl] midazolam [From Versed] Allergy Anaphylaxis Verified 10/25/23 19:16 dog Allergy Mild Itchy Eyes Uncoded 05/06/23 13:19 Review of Systems 2 Review of Systems: Constitutional : No Weight loss, No Fever, No Chills, No Night Sweats, complaining of fatigue and generalized malaise ENT/Mouth : No Hearing loss, No Ear Pain, complaining of nasal congestion, sinus pain, rhinorrhea, stuffy nose Eyes: No Eye Pain, No Swelling, No Redness, No Foreign Body, No Discharge, No Vision Changes Cardiovascular : No Chest Pain, No SOB, No Dyspnea on Exertion, No Orthopnea, No Edema, No Palpitations Respiratory : No Cough, No Sputum, No Wheezing, No Smoke Exposure, No Dyspnea Gastrointestinal : No Nausea, No Vomiting, No Diarrhea, No Constipation, No abdominal Pain, No Hematochezia, No Melena Genitourinary : no irregular bleeding, No Dysuria, No Urinary Frequency, No Hematuria, No Urinary Incontinence, No Urgency, No Flank Pain, No Urinary Flow Changes, No Hesitancy Musculoskeletal : complaining of diffuse body aches, no swelling Skin : No Skin Lesions, No rash Neuro : No Weakness, No Numbness, complaining of i left arm left leg Paresthesias, No Loss of Consciousness, No Dizziness, No Headache Psych : No Anxiety/Panic, No Depression, No SI/HI/AH/VH, No Social Issues, Heme/Lymph: No Bruising, No Bleeding,No Lymphadenopathy Endocrine : No Polyuria, No Polydipsia, No Temperature Intolerance [facility] Past Medical History Medical History (Updated 10/25/23 @ 22:40 by Mirta Beck MD) Diabetes Hypertension Adjustment disorder, unspecified Surgical History Hx of hernia repair Family History Family History Mother Heart problem Thyroid condition Hypertension Diabetes Father No problems noted. Social History Social History Alcohol intake: never Patient Tobacco Use Status: Never used Tobacco Advance Directives: No Advance Directives Information Provided: No Physical Exam ED Vital Signs: Vital Signs - 24 hr 10/25/23 19:16 10/25/23 20:02 10/25/23 20:04 Temperature 98.4 F Pulse Rate 89 74 83 Respiratory Rate 20 Blood Pressure 108/73 126/78 133/88 Pulse Oximetry 98 Oxygen Delivery Method Room Air 10/25/23 20:06 10/25/23 20:07 Temperature 98.3 F Pulse Rate 83 74 Respiratory Rate 16 Blood Pressure 136/90 H 126/78 Pulse Oximetry 98 Oxygen Delivery Method Room Air BMI result Body Mass Index 37.3 Const Other: Appearance: Alert. Oriented X3. No acute distress. Eyes: Pupils equal, round and reactive to light. ENT: Pharynx normal. Neck: Normal inspection. Neck supple. No lymph nodes noted. No crepitus CVS: Normal heart rate and rhythm. Pulses normal. Normal S1 and S2 Respiratory: No respiratory distress. Breath sounds normal. No Wheezing. No rales Abdomen: Soft and nontender. No rigidity. No distention. Skin: Skin warm and dry. Normal skin color. Normal skin turgor. Extremities: No lower extremity edema. No Lacerations. No Rash Neuro: Oriented X 3. No motor deficit. No sensory deficit. Moving all extremities. No slurred speech. CN 2 through 12 grossly intact Psych: calm, cooperative, normal affect NIH Stroke Scale Level of Consciousness: Alert Level of Consciousness Questions: Answers both questions correctly Level of Consciousness Commands: Performs both tasks correctly Best Gaze: Normal Visual: No visual loss Facial Palsy: Normal Motor Arm (Right): No drift Motor Arm (Left): No drift Motor Leg (Right): No drift Motor Leg (Left): No drift Limb Ataxia: Absent Sensory: Normal Best Language: No aphasia Dysarthia: Normal Extinction and Inattention: No abnormality Score: 0 Course Course Course Narrative: - all of patient's labs and imaging pending Medical Decision Making Medical Decision Making MDM Narrative: = my interpretation of labs, normal hematology and chemistry analysis positive for UTI, patient tested positive for COVID -my interpretation of CT scan of the head: No obvious intracranial abnormality -patient has normal function sensation and strength in all extremities, normal gait -patient has been symptomatic for 2 days with COVID, I discussed with the patient's the options of treating symptomatically versus with antiviral, patient opted to try the antiviral medication Differential Diagnosis Differential Diagnoses: The differential diagnosis associated with the presentation includes (TIA, CVA, UTI, COVID) Admission/Observation Consideration of admission/observation: Escalation of care including admission/observation considered (Given patient's symptoms, admission was considered) Lab Data MDM Lab Attestation statement: I reviewed the patient's lab results. 10/25/23 19:47 10/25/23 19:47 Labs: Lab Results 10/25/23 Range/Units 19:47 WBC 8.8 (4.8-10.8) X10*3/uL RBC 4.31 (4.20-5.50) X10*6/uL Hgb 11.9 L (12.0-16.0) g/dl Hct 38.2 (37.0-47.0) % MCV 88.6 (80.0-98.0) fL MCH 27.6 (27.0-33.0) pg MCHC 31.2 (31.0-35.0) g/dl RDW 12.3 (11.0-16.0) % Plt Count 326 (160-400) X10*3/uL MPV 9.6 (9.4-12.3) fL Immature Gran % (Auto) 0.3 (0.0-0.4) % Neut % (Auto) 53.1 (45-73) % Lymph % (Auto) 30.8 (20-40) % [place] % (Auto) 10.4 (2-11) % Eos % (Auto) 4.4 H (0-4) % Baso % (Auto) 1.0 (0-2) % Lymph # (Auto) 2.7 (1.2-4.9) X10*3/uL [place] # (Auto) 0.9 (0.1-1.2) X10*3/uL Eos # (Auto) 0.4 (0.0-0.4) X10*3/uL Baso # (Auto) 0.1 (0.0-0.2) X10*3/uL Abs Immat Gran (auto) 0.03 (0.00-0.03) X10*3/uL Absolute Neuts (auto) 4.7 (2.0-8.3) x10*3/uL Absolute Nucleated RBC 0.000 (0.0-0.012) X10*3/uL Nucleated RBC % (auto) 0.0 (0.0-0.2) /100WBC Sodium 143 (135-145) mmol/L Potassium 3.3 (3.3-5.1) mmol/L Chloride 107 (96-108) mmol/L Carbon Dioxide 25 (22-29) mmol/L Anion Gap 14 (12-20) BUN 10 (9-16) mg/dL Creatinine 0.95 (0.5-1.4) mg/dL Estim Creat Clear Calc 102.5 Estimated GFR > 60 Random Glucose 74 (60-115) mg/dL Calcium 9.3 (8.4-10.2) mg/dL Total Bilirubin 0.2 (0.0-1.0) mg/dL AST 15 (5-31) U/L ALT 15 (0-31) U/L Alkaline Phosphatase 96 (39-117) U/L Troponin I High Sens < 2.7 (<3.5-17.0) ng/L Total Protein 7.7 (6.5-8.0) g/dL Albumin 4.1 (3.5-5.0) g/dL Urine Color Yellow Urine Appearance Clear Urine pH 6.5 (5.0-9.0) Ur Specific [place] 1.010 (1.005-1.025) Urine Protein Negative (Neg-Trace) mg/dL Urine Glucose (UA) Negative (Negative) mg/dL Urine Ketones Negative (Negative) mg/dL Urine Blood Large (3+) H (Negative) Urine Nitrite Negative (Negative) Ur Leukocyte Esterase Trace H (Negative) Urine RBC >20 H (0-2) /HPF Urine WBC 0-5 (0-5) /HPF Ur Squamous Epith Cells 0-2 (0-2) /HPF Urine Bacteria None Seen (None Seen) Hyaline Casts 0-2 (0-2) /LPF Urine Test NEGATIVE (NEGATIVE) COVID-19 (YOSHI) Positive A (Negative) COVID-19 Clin Com See Note Independent Interpretation I performed an independent interpretation of an: CT Scan Interpretation: FINDINGS: There is no evidence of acute intracranial hemorrhage or edematous territorial infarction. Borjas-white matter differentiation is preserved. There is no abnormal attenuation within the brain parenchyma. The ventricles are normal in morphology and size. No evidence for obstructive hydrocephalus. No abnormal mass effect or midline shift. No extra-axial fluid collections. No acute soft tissue or osseous abnormalities. Moderate mucosal thickening of the paranasal sinuses. The mastoid air cells and middle ear cavities are clear. CT/CT head/brain wo IV con IMPRESSION: 1. No evidence of acute intracranial hemorrhage or edematous territorial infarction. 2. Moderate sinonasal mucosal disease. Radiology Impression Discussion of test interpretation with radiology: I have reviewed the radiologist's reading. (As above) Critical Care Time Critical Care Time Critical Care Time: Yes Total Critical Care Time: 75 Attestation: I have personally provided critical care time. Time includes review of lab data, radiology results, discussion with consultants, and monitoring for potential decompensation. Intervention performed as documented. Discharge Plan Discharge Clinical Impression: COVID-19, UTI (urinary tract infection) Patient Disposition: Home, Self-Care Instructions: Urinary Tract Infection in Women (ED), COVID-19 (Coronavirus Disease 2019) (ED) Additional Instructions: Please follow-up with your primary care physician tomorrow. If you have any worsening or new symptoms, please return to the emergency room or call 911 Prescriptions: New Paxlovid 300 mg (150 mg x 2)-100 mg tablets,dose pack See Rx Instructions .ROUTE .COMPLEX Qty: 30 0RF Rx Instructions: take TWO 150 mg tablets of nirmatrelvir with ONE 100 mg tablet of ritonavir twice daily for 5 days cefuroxime axetil 500 mg tablet 500 mg PO BID Qty: 14 0RF No Action vitamin A palmitate 3,000 mcg (10,000 unit) capsule 3,000 mcg PO DAILY 90 Days Qty: 90 1RF cholecalciferol (vitamin D3) 125 mcg (5,000 unit) capsule 125 mcg PO DAILY 90 Days Qty: 90 0RF naproxen 500 mg tablet 500 mg PO BID omeprazole 20 mg tablet,delayed release (DR/EC) 20 mg PO BID budesonide-formoterol [Symbicort] 160-4.5 mcg/actuation HFA aerosol inhaler 2 puff inhalation BID albuterol sulfate [Ventolin HFA] 90 mcg/actuation HFA aerosol inhaler 2 puff inhalation QID PRN (Reason: cough) montelukast 10 mg tablet 10 mg PO DAILY Stand Alone Forms: Work/School Release
[2023-10-25 20:04] VITALS: BP 133/88; PULSE 83
[2023-10-25 20:04] LABS: Bacteria Urine None Seen (None Seen); Hyaline Casts Urine 0-2 /LPF (0-2); RBC Urine >20 /HPF (0-2); Squamous Epithelial Cell Urine 0-2 /HPF (0-2); WBC Urine 0-5 /HPF (0-5)
[2023-10-25 20:06] VITALS: BP 136/90; PULSE 83
[2023-10-25 20:07] VITALS: BP 126/78; PULSE 74; RESP 16; TEMP 36.8; O2SAT 98
[2023-10-25 20:14] LABS: Alanine Aminotransferase 15 U/L (0-31); Albumin Level 4.1 g/dL (3.5-5.0); Alkaline Phosphatase 96 U/L (39-117); Anion Gap 14 (12-20); Aspartate Amino Transferase 15 U/L (5-31); Bilirubin Total 0.2 mg/dL (0.0-1.0); Blood Urea Nitrogen 10 mg/dL (9-16); Calcium 9.3 mg/dL (8.4-10.2); Carbon Dioxide 25 mmol/L (22-29); Chloride 107 mmol/L (96-108); Creatinine Clr Calc Pharmacy 102.5; Estimated Glomerular Filt Rate > 60; Glucose Random 74 mg/dL (60-115); Potassium 3.3 mmol/L (3.3-5.1); Sodium 143 mmol/L (135-145); Total Protein 7.7 g/dL (6.5-8.0)
[2023-10-25 20:21] LABS: Troponin-I High Sensitivity < 2.7 ng/L (<3.5-17.0)
[2023-10-25 20:30] LABS: COVID-19 Test Positive (Negative); IDNOW Serial# 08D9AD1C
[2023-10-25 23:03] VITALS: BP 112/65; PULSE 73; RESP 14; TEMP 36.7; O2SAT 99
== END 2023-10-25 23:16 | disposition home or self-care (01) ==
PROVIDERS: Emergency Provider Emergency Medicine
DX: U07.1 COVID-19 (principal); N39.0 Urinary tract infection, site not specified; E11.9 Type 2 diabetes mellitus without complications; I10 Essential (primary) hypertension; Z79.899 Other long term (current) drug therapy
CPT/HCPCS: 70450; 80053; 81001; 81025; 84484; 85025; 87635; 93005; 99284; 99285

== ENCOUNTER → 2023-10-25 19:24 | Outpatient (BNV) | payer OTHER, SELFPAY | PROVIDERS: Emergency Provider Emergency Medicine; Visit Provider Internal Medicine Cardiovascular Disease | DX: R53.1 Weakness (principal) | CPT/HCPCS: 93010 ==

== ENCOUNTER 2024-05-21 20:17 | Emergency (ER) | payer OTHER, SELFPAY ==
[2024-05-21 20:27] VITALS: BP 145/85; PULSE 86; RESP 20; TEMP 36.9; O2SAT 98; BMI 39.9
--- NOTE | 2024-05-21 20:31 | ED.GENADULT ---
HPI - General Adult General Chief complaint: General Medical Stated complaint: infection/pain in neck/head Related Data Home Medications ?Medication ?Instructions ?Recorded ?Confirmed albuterol sulfate 90 mcg/actuation 2 puff inhalation QID PRN cough 05/06/23 06/11/23 aerosol inhaler (Ventolin HFA) budesonide-formoterol HFA 160 2 puff inhalation BID 05/06/23 06/11/23 mcg-4.5 mcg/actuation aerosol inhaler (Symbicort) naproxen 500 mg tablet 500 mg PO BID 05/06/23 06/11/23 omeprazole 20 mg tablet,delayed 20 mg PO BID 05/06/23 06/11/23 release montelukast 10 mg tablet 10 mg PO DAILY 06/11/23 06/11/23 Previous Rx's ?Medication ?Instructions ?Recorded vitamin A palmitate 3,000 mcg 3,000 mcg PO DAILY 90 days #90 caps 07/18/23 (10,000 unit) capsule cefuroxime axetil 500 mg tablet 500 mg PO BID #14 tabs 10/25/23 nirmatrelvir 300 mg (150 mg See Rx Instructions PO .COMPLEX 10/25/23 x2)-ritonavir 100 mg tablet,dose #30 ea pack (Paxlovid) cholecalciferol (vitamin D3) 125 125 mcg PO DAILY 90 days #90 caps 02/16/24 mcg (5,000 unit) capsule Allergies Allergy/AdvReac Type Severity Reaction Status Date / Time cat dander Allergy Mild Itchy Eyes Verified 05/21/24 20:31 diphenhydramine Allergy Anaphylaxis Verified 05/21/24 20:31 [From Benadryl] midazolam [From Versed] Allergy Anaphylaxis Verified 05/21/24 20:31 dog Allergy Mild Itchy Eyes Uncoded 05/21/24 20:31 PMF Past Medical History Medical History (Updated 05/22/24 @ 23:04 by TIA Adrian) Diabetes Hypertension Adjustment disorder, unspecified Surgical History Hx of hernia repair Family History Family History Mother Heart problem Thyroid condition Hypertension Diabetes Father No problems noted. Social History Social History Alcohol intake: never Patient Tobacco Use Status: Never used Tobacco Advance Directives: No Advance Directives Information Provided: No Do you have a plan to hurt others: No Plan Physical Exam ED Vital Signs: BMI result Body Mass Index 39.9 Course Course Course Narrative: This is a Rapid Medical Examination (RME) performed by Rashad Eubanks PA-C in triage. Full HPI, ROS, assessment and treatment plan per primary provider in the Main ED. 39 yo female here for eval of right neck/ ear pain beginning today. reports hx of neck infection on March 02 2024 at [facility]. suspected infection from wisdom tooth. admitted for tx w/ IV anitbiotics, d/c home on PO abx with resolution until today. taking tylenol/ motrin at home w/o relief. +poor dentition. no obvious periapical abscess. right EAC w/ impacted cerumen, unable to visualize tm. Plan: tylenol given. labs/ inflammatory markers ordered. records requested from [facility]. Reevaluation(s) Reevaluation #1: Patient left the emergency department before myself or any of the other clinicians could review or explain physical exam findings, test results, need or lack there of for additional testing, treatment options, or a treatment plan. Medications Administered Discontinued Medications Generic Name Dose Route Start Last Admin Trade Name Wes PRN Reason Stop Dose Admin Acetaminophen 650 mg 05/21/24 20:32 05/21/24 20:35 Acetaminophen 325 Mg Tablet PO 05/21/24 20:33 650 mg ONCE ONE Administration Discharge Plan Discharge Clinical Impression: Neck swelling Patient Disposition: Left W/O Completing Treatment Prescriptions: No Action vitamin A palmitate 3,000 mcg (10,000 unit) capsule 3,000 mcg PO DAILY 90 Days Qty: 90 1RF cholecalciferol (vitamin D3) 125 mcg (5,000 unit) capsule 125 mcg PO DAILY 90 Days Qty: 90 0RF Paxlovid 300 mg (150 mg x 2)-100 mg tablets,dose pack See Rx Instructions .ROUTE .COMPLEX Qty: 30 0RF Rx Instructions: take TWO 150 mg tablets of nirmatrelvir with ONE 100 mg tablet of ritonavir twice daily for 5 days cefuroxime axetil 500 mg tablet 500 mg PO BID Qty: 14 0RF naproxen 500 mg tablet 500 mg PO BID omeprazole 20 mg tablet,delayed release (DR/EC) 20 mg PO BID budesonide-formoterol [Symbicort] 160-4.5 mcg/actuation HFA aerosol inhaler 2 puff inhalation BID albuterol sulfate [Ventolin HFA] 90 mcg/actuation HFA aerosol inhaler 2 puff inhalation QID PRN (Reason: cough) montelukast 10 mg tablet 10 mg PO DAILY Discharge Date/Time: 05/22/24 01:00
[2024-05-21] MEDS: Acetaminophen 325 MG TABLET 650 MG PO (20:35)
--- NOTE | 2024-05-21 20:59 | MHC.EDTECH ---
Patient was called 4 times to obtain blood draw ,no answer ,triage provider aware .
== END 2024-05-22 01:00 | disposition left against medical advice (07) ==
LOC: HO.ED 05-22 00:39
PROVIDERS: Emergency Provider Emergency Medicine
DX: R22.1 Localized swelling, mass and lump, neck (principal)
CPT/HCPCS: 99281; 99282

== ENCOUNTER → 2025-01-27 07:49 | Outpatient (BNVA) | payer OTHER, SELFPAY | PROVIDERS: Visit Provider Physician Assistant Surgical ==

== ENCOUNTER 2025-02-25 08:03 | Outpatient (AMB) | payer OTHER, SELFPAY ==
--- NOTE | 2025-02-25 10:21 | A.OFFVIS_ITS ---
VS Expanded 02/25/25 10:34 Height 5 ft 6 in Weight 242 lb 8 oz BMI 39.1 Body Fat % 46 Body Fat Mass 111.6 Fat Free Mass 131.2 Visceral Fat Rating 12 Body Water % 38.7 Body Water Mass 94 Basal Metabolic Rate/Score 1,862 Intake Visit Reasons: TV Re-Est SWL BMI 39.2 Allergies cat dander Allergy (Mild, Verified 02/25/25 10:21) Itchy Eyes diphenhydramine [From Benadryl] Allergy (Verified 02/25/25 10:21) Anaphylaxis midazolam [From Versed] Allergy (Verified 02/25/25 10:21) Anaphylaxis dog Allergy (Mild, Uncoded 02/25/25 10:21) Itchy Eyes Medication List - Last Reconciled 02/25/25 by Bryson Valverde MD albuterol sulfate 90 mcg/actuation (Ventolin HFA) 2 puffs inhalation QID PRN benralizumab (Fasenra) 30 mg subcut Q8W budesonide-formoterol 160-4.5 mcg/actuation (Symbicort) 2 puffs inhalation BID epinephrine IM montelukast 10 mg PO DAILY naproxen 500 mg PO BID nirmatrelvir-ritonavir 300 mg (150 mg x 2)-100 mg (Paxlovid) take TWO 150 mg tablets of nirmatrelvir with ONE 100 mg tablet of ritonavir twice daily for 5 days omeprazole 20 mg PO BID HPI HPI TV Re-Est SWL BMI 39.2: Details: Start time: 10.11am, End time: 10.56am ?I spent 40 minutes speaking with the patient on the phone plus an additional 5 minutes reviewing and updating records for a total of 45 minutes HPI Comments Details: Previous weight loss efforts: self diet and exercise Wakes up: 7am, sleeps: 11pm (works 2 jobs 5 days per week) Breakfast: 7.30am (eggs with sotelo) Lunch: 12pm (rice and chicken, or [employer]) Dinner: skips Snacks: 10am (banana, [employer] protein bar), 2 snacks after lunch (grapes, bananas) Exercise: none Beverages: Coffee (black 1 cup/d), tea: Green tea (1 cup x4/wk with a fruit), Diet Coke: daily, juice: none, ETOH: none [facility] Medical History (Updated 02/25/25 @ 10:26 by Bryson Valverde MD) TIA (transient ischemic attack) DJD (degenerative joint disease) Asthma GERD (gastroesophageal reflux disease) BMI 39.0-39.9,adult Diabetes Hypertension Adjustment disorder, unspecified Family History Mother Heart problem Thyroid condition Hypertension Diabetes Father No problems noted. Social History Alcohol intake: never Patient Tobacco Use Status: Never used Tobacco Telehealth Telehealth Telehealth Platform: Telephone Location of provider rendering services: practice address Location of patient: address on file Patient Identification confirmed using: Name, : Yes Telehealth method: voice only Patient verbally consented to treatment: Yes Patient verbally consented to billing insurance company: Yes Patient informed of any privacy concerns related to visit: Yes Minutes spent on Phone/Video with Pt.: 45 Assessment & Plan Assessment & Plan (1) Obesity (BMI 30-39.9): Code(s): E66.9 - Obesity, unspecified Category: Medical Plan: 1.? Plan for lap sleeve gastrectomy. If diaphragmatic or ventral hernias are present at time of surgery, these will be repaired laparoscopically as well. I emphasized the importance of close follow-up, adherence to instructions and good communication. The surgery does not replace the need to change your lifestlyle which is the cause of the obesity problem. The surgery provides the motivation to try again to change your lifestyle, it reduces the appetite and make the transition to a better lifestyle easier and doubles the amount of w eight you would lose compared to doing the lifestyle change without the surgery. You will need to be on a liquid diet with protein shakes for 2 weeks before surgery to maximize weight loss and boost your nutritional status to recover better from surgery and also for the first two weeks after surgery to let the stomach heal before we introduce other foods. After the first 2 weeks we will introduce protein bars and soft foods like scrambled eggs, cottage cheese and yogurt and after the 6th week will introduce meat, fish and cooked vegetables in small amounts. Over time you should be able to eat everything in small amounts. Side effects like nausea, vomiting, heartburn or abdominal pain are not common in the practice unless you are not following in the practice. This operation requires lifetime commitment to following in our practice and communication with me. You will much less weight and experience side effects if you don?t communicate or not following in the practice. Complications are rare and in our practice is about 1/10 of the national average. However, you can develop bleeding that may require transfusion (hasn?t happened for year in the practice), you may from complications (we did not have any deaths in the practice) and infections. Infections are usually a result of breakdown in communication or not understanding or following directions correctly. They are difficult to treat, they can happen during the first 6 weeks, they may require to be in the hospital for weeks or even months, not being able to eat by mouth and you may have drains and surgeries to try and correct the issue. Other risks and complications include possible conversion to an open procedure, leaks, small bowel obstruction, blood clots, cardiac, or pulmonary complications, as intermediate complications such as ulcers, insufficient weight loss and vitamin deficiencies. 2.? Nutritional counseling. Start with one Fit Crunch protein bar at 9am- 11am (buy at [employer] or [employer]), lunch at 12pm (8 forks of protein and 8 forks of salad/vegetables) and 3 Fit Crunch protein bars after dinner at 2pm-4pm, 5pm- 7pm and 8pm-10pm. So you do 4 protein bars and one meal per day. Meal to include lean meat (beef, fish, pork, turkey, chicken), or maori yogurt, or egg whites, or beans with a salad with olive oil and fruits (berries, pears, apples, kiwi). Avoid salt, breads, potatoes, rice, pasta, desserts. 3. Each shake would be drunk slowly, like coffee in a period of 2 hours. 4. Cut each bar in 4 pieces and eat each piece in 30min ?to make each bar last 2 hours. 5. I emphasized the importance of measuring accurately the food portion and measure it when serving the food in plate 6. The meal portions include 8 full-size forks of meat and 8 full-size forks of salad. You always eat the meat portion but you can replace up to 4 forks for salad/vegetables with rice, potatoes or pasta, or a fruit ?if you like. The less you do it the better weight loss will be. 7. One full-size fork is what it can be scooped on the fork without falling aside and not what can be bit with the fork. Use regular forks like those you find in a typical restaurant. 8.? Please buy the body composition scale we discussed and send me weight measurements as soon as possible and then once a week. Always include your diet and exercise plan. 9. Start walking outside daily, tracking calories with a goal of 300 calories per day, daily. Goal is to burn 2000 calories per week on exercise, which means either 300 calories daily, or 400 calories 5 days per week, or 500 calories 4 days per week, or 650 calories 3 days per week. 10. The best choice would be to purchase a stationary bike, elliptical or treadmill at home that can track calories. Let me know if you do so I can give you an exercise plan. 11.?It is important of avoiding and for at least 18 months postoperatively and has been discussed at the infosession. 12. Goal is to lose at least 1.5-2lbs per week 13. Goal to lose 10% of your weight before surgery, which is about 24lbs. Ultimate weight goal: 218lbs before surgery 14. Please follow the diet plan exactly without any change. If you don't like something about the plan or you feel hungry you need to communicate with me so I can help you revise the plan. You should not change the plan yourself 15. To be scheduled for EGD to assess the stomach's anatomy. The possibility of biopsies was discussed. Patient needs to avoid use of NSAIDs and aspirin for 1 week prior to EGD. You must be on liquids only the day before your endoscopy. Risks of perforation and bleeding was discussed with the patient. This will be an outpatient procedure with IV sedation. Orders: Orders Insulin Today E66.9 - Obesity, unspecified, G47.33 - Obstructive sleep apnea (adult) (pediatric), K21.9 - Gastro-esophageal reflux disease without esophagitis, Z68.39 - Body mass index [BMI] 39.0-39.9, adult Hemoglobin A1c Today E66.9 - Obesity, unspecified, G47.33 - Obstructive sleep apnea (adult) (pediatric), K21.9 - Gastro-esophageal reflux disease without esophagitis, Z68.39 - Body mass index [BMI] 39.0-39.9, adult Lipid Panel Today E66.9 - Obesity, unspecified, G47.33 - Obstructive sleep apnea (adult) (pediatric), K21.9 - Gastro-esophageal reflux disease without esophagitis, Z68.39 - Body mass index [BMI] 39.0-39.9, adult IRON PROFILE Today E66.9 - Obesity, unspecified, G47.33 - Obstructive sleep apnea (adult) (pediatric), K21.9 - Gastro-esophageal reflux disease without esophagitis, Z68.39 - Body mass index [BMI] 39.0-39.9, adult Comprehensive Met. Panel Today E66.9 - Obesity, unspecified, G47.33 - Obstructive sleep apnea (adult) (pediatric), K21.9 - Gastro-esophageal reflux disease without esophagitis, Z68.39 - Body mass index [BMI] 39.0-39.9, adult Zinc Today E66.9 - Obesity, unspecified, G47.33 - Obstructive sleep apnea (adult) (pediatric), K21.9 - Gastro-esophageal reflux disease without esophagitis, Z68.39 - Body mass index [BMI] 39.0-39.9, adult Vitamin B1 Today E66.9 - Obesity, unspecified, G47.33 - Obstructive sleep apnea (adult) (pediatric), K21.9 - Gastro-esophageal reflux disease without esophagitis, Z68.39 - Body mass index [BMI] 39.0-39.9, adult TSH reflex Free T4 Today E66.9 - Obesity, unspecified, G47.33 - Obstructive sleep apnea (adult) (pediatric), K21.9 - Gastro-esophageal reflux disease without esophagitis, Z68.39 - Body mass index [BMI] 39.0-39.9, adult H Pylori Breath Test Today E66.9 - Obesity, unspecified, G47.33 - Obstructive sleep apnea (adult) (pediatric), K21.9 - Gastro-esophageal reflux disease without esophagitis, Z68.39 - Body mass index [BMI] 39.0-39.9, adult Complete Blood Count Auto Diff Today E66.9 - Obesity, unspecified, G47.33 - Obstructive sleep apnea (adult) (pediatric), K21.9 - Gastro-esophageal reflux disease without esophagitis, Z68.39 - Body mass index [BMI] 39.0-39.9, adult Vitamin B12 and Folate Today E66.9 - Obesity, unspecified, G47.33 - Obstructive sleep apnea (adult) (pediatric), K21.9 - Gastro-esophageal reflux disease without esophagitis, Z68.39 - Body mass index [BMI] 39.0-39.9, adult C Reactive Protein Today E66.9 - Obesity, unspecified, G47.33 - Obstructive sleep apnea (adult) (pediatric), K21.9 - Gastro-esophageal reflux disease without esophagitis, Z68.39 - Body mass index [BMI] 39.0-39.9, adult Vitamin A Today E66.9 - Obesity, unspecified, G47.33 - Obstructive sleep apnea (adult) (pediatric), K21.9 - Gastro-esophageal reflux disease without esophagitis, Z68.39 - Body mass index [BMI] 39.0-39.9, adult Ferritin Today E66.9 - Obesity, unspecified, G47.33 - Obstructive sleep apnea (adult) (pediatric), K21.9 - Gastro-esophageal reflux disease without esophagitis, Z68.39 - Body mass index [BMI] 39.0-39.9, adult Vitamin D 25-OH Total Today E66.9 - Obesity, unspecified, G47.33 - Obstructive sleep apnea (adult) (pediatric), K21.9 - Gastro-esophageal reflux disease without esophagitis, Z68.39 - Body mass index [BMI] 39.0-39.9, adult XR chest 2V Today E66.9 - Obesity, unspecified, G47.33 - Obstructive sleep apnea (adult) (pediatric), K21.9 - Gastro-esophageal reflux disease without esophagitis, Z68.39 - Body mass index [BMI] 39.0-39.9, adult ECG 12 lead EKG Today E66.9 - Obesity, unspecified, G47.33 - Obstructive sleep apnea (adult) (pediatric), K21.9 - Gastro-esophageal reflux disease without esophagitis, Z68.39 - Body mass index [BMI] 39.0-39.9, adult Referrals Behavioral Health Referral E66.9 - Obesity, unspecified, G47.33 - Obstructive sleep apnea (adult) (pediatric), K21.9 - Gastro-esophageal reflux disease without esophagitis, Z68.39 - Body mass index [BMI] 39.0-39.9, adult Nutrition/Dietitian Referral E66.9 - Obesity, unspecified, G47.33 - Obstructive sleep apnea (adult) (pediatric), K21.9 - Gastro-esophageal reflux disease without esophagitis, Z68.39 - Body mass index [BMI] 39.0-39.9, adult
[2025-02-25 10:34] VITALS: BMI 39.1
== END 2025-02-25 10:56 | disposition home or self-care (01) ==
LOC: HO.HBS 08:03
PROVIDERS: Visit Provider Surgery
DX: E66.9 Obesity, unspecified (principal)
CPT/HCPCS: 99204

== ENCOUNTER → 2025-02-25 08:03 | Outpatient (BNVA) | payer OTHER, SELFPAY | PROVIDERS: Visit Provider Surgery ==

== ENCOUNTER 2025-06-26 15:16 | Emergency (ER) | payer OTHER, SELFPAY ==
--- NOTE | 2025-06-26 15:25 | ED.DIZZY ---
HPI - Dizziness General Chief Complaint: Dizziness Stated Complaint: head spinning, vomiting (?vertigo) Time Seen by Provider: 06/26/25 17:37 Source: patient Mode of arrival: ambulatory Limitations: no limitations History of Present Illness ED Provider: ASHLEY JI PA-C HPI Narrative: 40 year old female with pmhx significant for GERD, DEVANG, TIA, CVA, adjustment disorder presents to the ED today for evaluation of intermittent dizziness x3 days. Patient reports waking up 3 days ago and turning over to get out of bed when she suddenly felt as though the room was spinning. This lasted for only a few minutes before completely resolving. She was able to continue on throughout her day without experiencing another episode of dizziness. The following morning, she turned over in bed and again felt as though the room was spinning before the episode completely resolved. Admits dizziness is exacerbated with head movements. Reports similar episode today with associated nausea and one episode of vomiting, prompting her to come to the ED for evaluation. Denies history of vertigo. Denies fever, chills, headache, vision changes, chest pain, palpitations, LE pain/swelling. No recent travel or long car rides. No recent med changes. Denies any trauma/head injury/falls. Patient has a history of CVA - states this does not feel like her previous CVA. At that time, had left sided weakness and right facial droop. Has mild left sided deficit since, states this is unchanged. Related Data Home Medications ?Medication ?Instructions ?Recorded ?Confirmed albuterol sulfate 90 mcg/actuation 2 puff inhalation QID PRN cough 05/06/23 02/25/25 aerosol inhaler (Ventolin HFA) budesonide-formoterol HFA 160 2 puff inhalation BID 05/06/23 02/25/25 mcg-4.5 mcg/actuation aerosol inhaler (Symbicort) naproxen 500 mg tablet 500 mg PO BID 05/06/23 02/25/25 omeprazole 20 mg tablet,delayed 20 mg PO BID 05/06/23 02/25/25 release montelukast 10 mg tablet 10 mg PO DAILY 06/11/23 02/25/25 epinephrine 0.3 mg/0.3 mL IM anaphylaxis 01/27/25 02/25/25 injection, auto-injector benralizumab 10 mg/0.5 mL 30 mg subcut Q8W 02/25/25 02/25/25 subcutaneous syringe (Fasenra) Previous Rx's ?Medication ?Instructions ?Recorded nirmatrelvir 300 mg (150 mg See Rx Instructions PO .COMPLEX 10/25/23 x2)-ritonavir 100 mg tablet,dose #30 ea pack (Paxlovid) meclizine 25 mg tablet 25 mg PO BID PRN dizziness 2 weeks 06/26/25 #28 tabs Allergies Allergy/AdvReac Type Severity Reaction Status Date / Time cat dander Allergy Mild Itchy Eyes Verified 06/26/25 15:27 diphenhydramine (From Allergy Anaphylaxis Verified 06/26/25 15:27 Benadryl) midazolam (From Versed) Allergy Anaphylaxis Verified 06/26/25 15:27 dog Allergy Mild Itchy Eyes Uncoded 06/26/25 15:27 Review of Systems Review of Systems: Yes all other systems are reviewed and are negative PMFSH Past Medical History Attestation statement: The following information was validated with the patient. Source: old records reviewed and nursing notes reviewed Medical History TIA (transient ischemic attack) DJD (degenerative joint disease) Asthma GERD (gastroesophageal reflux disease) BMI 39.0-39.9,adult Diabetes Hypertension Adjustment disorder, unspecified Family History Family History Mother Heart problem Thyroid condition Hypertension Diabetes Father No problems noted. Social History Social History Alcohol intake: never Patient Tobacco Use Status: Never used Tobacco Advance Directives: No Advance Directives Information Provided: Yes Do you have a plan to hurt others: No Plan Physical Exam Vital Signs: Vital Signs: Last Vital Signs Temp 97.8 F 06/26/25 19:23 Pulse 68 06/26/25 19:23 Resp 17 06/26/25 19:23 BP 134/60 06/26/25 19:23 Pulse Ox 99 06/26/25 19:23 O2 Del Method Room Air 06/26/25 19:23 BMI result Body Mass Index 38.4 vital signs stable General: Well appearing, in no acute distress. Skin: Warm, dry, intact. No rashes or lesions. Head: Normocephalic, atraumatic. EENT: Hearing is intact b/l. Conjunctiva clear. Sclera is anicteric. PERRLA. EOM intact. Moist mucous membranes.? Cardiac: Chest wall symmetric. RRR. No MRG. No JVD. Lungs: Normal respiratory effort without accessory muscle use. CTA bilaterally Back: No midline spinous or paraspinal tenderness. No step off deformity. Ext: Upper and lower extremities atraumatic, without tenderness, deformity, swelling or erythema Neuro: AOx3. Normal speech. NIH 0. Normal [id number], [id number]. Ambulating with steady gait. NIH Stroke Scale Internal: Initial- Upon Arrival Level of Consciousness: Alert Level of Consciousness Questions: Answers both questions correctly Level of Consciousness Commands: Performs both tasks correctly Best Gaze: Normal Visual: No visual loss Facial Palsy: Normal Motor Arm (Right): No drift Motor Arm (Left): No drift Motor Leg (Right): No drift Motor Leg (Left): No drift Limb Ataxia: Absent Sensory: Normal Best Language: No aphasia Dysarthia: Normal Extinction and Inattention: No abnormality Score: 0 Course Course Course Narrative: Socorro Straussleilani E [employer] SPECIALIST 06/26 1526 This is a rapid medical exam. Deferred additional HPI, ROS, PE to primary provider. 40 yo female with PMH of asthma, GERD here with complaints of dizziness with waking yesterday. This is worsened with head movement. Has had vomiting with this. Will obtain labs, EKG VSS Reevaluation(s) Reevaluation #1: 1924 -- CBC without leukocytosis or left shift. Normocytic anemia, H and H stable and above transfusion threshold. Chemistry without acute electrolyte abnormality requiring intervention. Troponin WNL. No TEGAN. EKG showing normal sinus rhythm with a rate of 69 beats per minute, QT 380, QTC 407, no acute ischemic changes or ST elevations. > patient reports improvement in symptoms after receiving a L of IV fluids and meclizine. She is able to turn her head without reproducing dizziness. She is asymptomatic. She is up and ambulating with steady gait. I have suspicion for vertigo like dizziness. Will send meclizine to pharmacy and advised PCP follow up. I do not feel as though imaging of her head is warranted at this time as her exam is nonfocal and cerebellar exam is intact. Tolerating p.o. intake, no episodes of vomiting in the ED. Patient has remained stable throughout ED visit today. Discussed worrisome signs and symptoms and when to return to the ED. All questions answered at this time. Patient is agreeable with disposition and stable for discharge. Medications Administered Discontinued Medications Generic Name Dose Route Start Last Admin Trade Name Wes PRN Reason Stop Dose Admin Sodium Chloride 1,000 mls @ 999 mls/hr 06/26/25 17:30 06/26/25 18:36 Ns IV 06/26/25 18:30 Infused .Q1H1M CLAUDETTE Infusion Meclizine HCl 25 mg 06/26/25 18:15 06/26/25 18:36 Meclizine Hcl 25 Mg Tablet PO 06/26/25 18:16 25 mg ONCE ONE Administration Ondansetron HCl 4 mg 06/26/25 18:31 06/26/25 18:36 Ondansetron Odt 4 Mg Tab.Rapdis TRANSLINGU 06/26/25 18:32 4 mg ONCE ONE Administration Medical Decision Making Medical Decision Making [facility] Narrative: 40 year old female with pmhx significant for GERD, DEVANG, TIA, CVA, adjustment disorder presents to the ED today for evaluation of intermittent dizziness x3 days. Differential diagnoses includes: anemia, electrolyte abnormality, hypoglycemia, dehydration, medication side effect, BPPV vs labrynthitis No red flag features for central vertigo to include gradual onset, vertical/bidirectional or nonfatigable nystagmus, focal neurologic findings on exam (including inability to ambulate). Presentation not consistent with an acute [employer] infection, vertebral basilar artery insufficiency, cerebellar hemorrhage or infarction,?intracranial mass or bleed, temporal lobe epilepsy,?MS, trauma, complex migraine headache. I have also considered ACS, arrhythmia, PE (PERC ), pneumonia, UTI. Plan: labs, ekg, trial of IVF +meclizine, supportive care, serial reassessment Differential Diagnosis Differential Diagnoses: The differential diagnosis associated with the presentation includes as above. Admission/Observation not indicated. Lab Data [facility] Lab Attestation statement: I reviewed the patient's lab results. as above. 06/26/25 15:50 06/26/25 15:50 Labs: Lab Results 06/26/25 Range/Units 15:50 WBC 10.5 (4.8-10.8) X10*3/uL RBC 4.16 L (4.20-5.50) X10*6/uL Hgb 11.7 L (12.0-16.0) g/dl Hct 36.8 L (37.0-47.0) % MCV 88.5 (80.0-98.0) fL MCH 28.1 (27.0-33.0) pg MCHC 31.8 (31.0-35.0) g/dl RDW 12.5 (11.0-16.0) % Plt Count 295 (160-400) X10*3/uL MPV 9.6 (9.4-12.3) fL Immature Gran % (Auto) 0.4 (0.0-0.4) % Neut % (Auto) 66.4 (45-73) % Lymph % (Auto) 23.4 (20-40) % [place] % (Auto) 7.4 (2-11) % Eos % (Auto) 1.5 (0-4) % Baso % (Auto) 0.9 (0-2) % Lymph # (Auto) 2.5 (1.2-4.9) X10*3/uL [place] # (Auto) 0.8 (0.1-1.2) X10*3/uL Eos # (Auto) 0.2 (0.0-0.4) X10*3/uL Baso # (Auto) 0.1 (0.0-0.2) X10*3/uL Abs Immat Gran (auto) 0.04 H (0.00-0.03) X10*3/uL Absolute Neuts (auto) 7.0 (2.0-8.3) x10*3/uL Absolute Nucleated RBC 0.000 (0.0-0.012) X10*3/uL Nucleated RBC % (auto) 0.0 (0.0-0.2) /100WBC Sodium 142 (135-145) mmol/L Potassium 4.0 D (3.3-5.1) mmol/L Chloride 111 H (96-108) mmol/L Carbon Dioxide 25 (22-29) mmol/L Anion Gap 10 L (12-20) BUN 11 (9-16) mg/dL Creatinine 0.83 (0.5-1.4) mg/dL Estim Creat Clear Calc 117.0 Estimated GFR > 60 Random Glucose 87 (60-115) mg/dL Calcium 8.6 D (8.4-10.2) mg/dL Troponin I High Sens < 2.7 (<3.5-17.0) ng/L Independent Interpretation I performed an independent interpretation of an: EKG Interpretation: ekg showing NSR with rate of 69 bpm, no acute ischemic changes or st elevations Radiology Impression Discussion of test interpretation with radiology: I have reviewed the radiologist's reading. Radiologist Impression: Ordering Physician: Socorro Pleitez NP Date of Service: 06/26/25 Procedure(s): ECG 12 lead EKG Accession Number(s): [id number] cc: Socorro Pleitez NP~ Reason for Exam: dizziness Test Reason : diziness Blood Pressure : */* mmHG Vent. Rate : 69 BPM Atrial Rate : 69 BPM P-R Int : 166 ms QRS Dur : 78 ms QT Int : 380 ms P-R-T Axes : 55 26 15 degrees QTcB Int : 407 ms Normal sinus rhythm Normal ECG When compared with ECG of 25-Oct-2023 19:38, No significant change was found Referred By: Socorro Pleitez Electronically Signed By: Andrea Alexander External Record Review External record reviewed: Inpatient record Prescription Management I considered prescription management with: Other (meclizine) Social Determinants Patient?s care significantly limited by Social Determinants of Health including: Other Social Determinant of Health Critical Care Time Critical Care Time Critical Care Time: No Discharge Plan Discharge Clinical Impression: Dizziness Patient Disposition: Home, Self-Care Instructions: Vertigo (ED), Dizziness (ED) Additional Instructions: You were evaluated in the ED today for dizziness. Your work up is reassuring. It is reassuring that your symptoms improved with IV fluids and meclizine. I have suspicion that you have vertigo. See home care instructions. I am sending meclizine to your pharmacy for you to take to prevent dizzy spells. You need to follow up with your primary care provider. Return with any new or worsening symptoms. In the case of an emergency call 911. Prescriptions: New meclizine 25 mg tablet 25 mg PO BID PRN (Reason: dizziness) 14 Days Qty: 28 0RF No Action Paxlovid 300 mg (150 mg x 2)-100 mg tablets,dose pack See Rx Instructions .ROUTE .COMPLEX Qty: 30 0RF Rx Instructions: take TWO 150 mg tablets of nirmatrelvir with ONE 100 mg tablet of ritonavir twice daily for 5 days naproxen 500 mg tablet 500 mg PO BID omeprazole 20 mg tablet,delayed release (DR/EC) 20 mg PO BID budesonide-formoterol [Symbicort] 160-4.5 mcg/actuation HFA aerosol inhaler 2 puff inhalation BID albuterol sulfate [Ventolin HFA] 90 mcg/actuation HFA aerosol inhaler 2 puff inhalation QID PRN (Reason: cough) epinephrine 0.3 mg/0.3 mL auto-injector IM Fasenra 10 mg/0.5 mL syringe 30 mg subcut Q8W Rx Instructions: start week 16 of treatment montelukast 10 mg tablet 10 mg PO DAILY Referrals: Group,[facility] [Primary Care Provider, Primary Care] Interventions: ED Discharge Assessment Last Done: 06/26/25 19:23 Discharge Date/Time: 06/26/25 19:31 Print Language: Marshallese
[2025-06-26 15:27] VITALS: BP 134/60; PULSE 68; RESP 17; TEMP 36.6; O2SAT 99; BMI 38.4
--- NOTE | 2025-06-26 15:28 | ECG_ITS ---
Test Reason : diziness Blood Pressure : */* mmHG Vent. Rate : 69 BPM Atrial Rate : 69 BPM P-R Int : 166 ms QRS Dur : 78 ms QT Int : 380 ms P-R-T Axes : 55 26 15 degrees QTcB Int : 407 ms Normal sinus rhythm Normal ECG When compared with ECG of 25-Oct-2023 19:38, No significant change was found Referred By: Socorro Pleitez Electronically Signed By: Andrea Alexander
[2025-06-26 15:56] LABS: MANUAL DIFF FLAG NO
[2025-06-26 15:58] LABS: Hematocrit 36.8 % (37.0-47.0); Hemoglobin 11.7 g/dl (12.0-16.0); Imm Gran Abs Auto 0.04 X10*3/uL (0.00-0.03); Imm Gran Pct Auto 0.4 % (0.0-0.4); Lymphocytes Absolute Auto 2.5 X10*3/uL (1.2-4.9); Mean Corpuscular HGB Conc 31.8 g/dl (31.0-35.0); Mean Corpuscular Hemoglobin 28.1 pg (27.0-33.0); Mean Corpuscular Volume 88.5 fL (80.0-98.0); NRBC Abs Auto 0.000 X10*3/uL (0.0-0.012); NRBC Pct Auto 0.0 /100WBC (0.0-0.2); Platelet Count 295 X10*3/uL (160-400); Red Blood Count 4.16 X10*6/uL (4.20-5.50); White Blood Count 10.5 X10*3/uL (4.8-10.8)
[2025-06-26 16:11] LABS: Anion Gap 10 (12-20); Blood Urea Nitrogen 11 mg/dL (9-16); Calcium 8.6 mg/dL (8.4-10.2); Carbon Dioxide 25 mmol/L (22-29); Chloride 111 mmol/L (96-108); Creatinine Clr Calc Pharmacy 117.0; Estimated Glomerular Filt Rate > 60; Potassium 4.0 mmol/L (3.3-5.1); Sodium 142 mmol/L (135-145)
[2025-06-26 16:20] LABS: Troponin-I High Sensitivity < 2.7 ng/L (<3.5-17.0)
--- NOTE | 2025-06-26 17:12 | PC.NURSE ---
Pt here w/ c/o two days of dizziness that began on Sat @ 0500 when she awoke, assoc w/ mild nausea. Last night sx's lessened, however they returned today now w/ vomitting x 2. Pt describes the dizziness as room spinning and family at bedside says she was a little unsteady gait. Mild photophobia.
--- OUTSIDE RECORDS SUMMARY | 2025-06-26 17:29 | XMS_ITS | Clinical Summary ---
Author Organization 175 [facility] Address [address] [place] [address] Phone Care Team Providers Care Mine Car Dispatcher Name Role Phone Faiza Luong MD Primary Care Provider Allergies Active Allergy Reactions Criticality Noted Date Comments Cetirizine Anaphylaxis,Hives High 11/19/2019 Paitnet drowsy sleepy and hives Diphenhydramine Anaphylaxis High 11/19/2019 Patient got intubated. patient felt like throat was tight/closing Famotidine 08/31/2024 airway constriction Hydrogen Peroxide Hives,Shortness of breath High 08/31/2024 Ibuprofen-Diphenhydrami ne Hcl Burning Eyes 01/16/2023 Iodinated Contrast Media Anaphylaxis High 03/02/2024 Lidocaine Anaphylaxis High 11/19/2019 Midazolam Anaphylaxis,Nausea And Vomiting High 10/04/2021 Had been given when intubated had vomitted. 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 4 Active butalbital-acetam inophen-caffeine 50-300-40 mg capsule Take 1 capsule by mouth. 3 Active cholecalciferol (VITAMIN D-3) 125 mcg (5,000 unit) capsule 4 Active fexofenadine (TRENT) 180 mg tablet Take 1 tablet (180 mg total) by mouth 1 (one) time each day. 4 Active ibuprofen (ADVIL,MOTRIN) 600 mg tablet TOME DAVID TABLETA POR V A ORAL GEORGI VECES AL D A (MAX 4 TABS PER 24 HOURS) 4 Active ipratropium-albut Scooter (DUONEB) 0.5-2.5 mg/3 mL nebulizer solution Inhale 3 mL by mouth. 4 Active levonorgestreL (MIRENA) 21 mcg/24hr (up to 8 yrs) 52 mg IUD 7 Active naproxen (NAPROSYN) 500 mg tablet Take 1 tablet (500 mg total) by mouth. 4 Active tiotropium-olodat Scooter (Stiolto Respimat) 2.5-2.5 mcg/actuation mist inhalerIndication s:Severe persistent asthma with acute exacerbation (CMS/HCC V28) Inhale 2 puffs by mouth 1 (one) time each day. 4 g 2 4 09/02/20 25 Active beclomethasone dipropionate (Qvar RediHaler) 40 mcg/actuation HFA aerosol breath activated inhalerIndication s:Severe persistent asthma with acute exacerbation (CMS/HCC V28) Inhale 4 puffs by mouth 2 (two) times a day. 1 each 1 4 Active benralizumab (Fasenra) 30 mg/mL syringeIndication s:eosinophilic asthma Please inject SQ 1ml every 28 days for 3 times 1 mL 3 5 Active EPINEPHrine (EPIPEN) 0.3 mg/0.3 mL injection Inject 0.3 mL (0.3 mg total) into the thigh if needed for anaphylaxis. 1 each 5 Active montelukast (SINGULAIR) 10 mg tablet Take 1 tablet (10 mg total) by mouth at bedtime. 90 each 1 5 Active predniSONE (DELTASONE) 10 mg tabletIndications :COPD exacerbation,asth ma exacerbation Take 4 tablets (40 mg total) by mouth 1 (one) time each day for 3 days, THEN 3 tablets (30 mg total) 1 (one) time each day for 3 days, THEN 2 tablets (20 mg total) 1 (one) time each day for 3 days, THEN 1 tablet (10 mg total) 1 (one) time each day for 3 days. 30 each 5 05/31/20 25 Active Problems Problem Noted Date Diagnosed Date Anaphylaxis 08/31/2024 Anemia 08/31/2024 Chest pain 08/31/2024 Obesity 08/31/2024 H. pylori infection 02/06/2023 Allergic rhinitis 03/22/2022 Obesity (BMI 30-39.9) 03/22/2022 Asthma 10/04/2021 Allergic reaction 09/29/2016 Overview (08/31/2024): 3 weeks in hospital she was intubated Stroke ([facility] V24, [facility] V28) 09/29/2014 Encounters Date Type Department Care Team Description 05/31/2025 10:03 AM EDT - 05/31/2025 11:59 PM EDT Hospital Encounter [facility] CT Scan [address] [place] [phone] Nonintractable episodic headache, unspecified headache type; Dizziness; Cerebrovascular accident (CVA), unspecified mechanism ([facility] V24, [facility] V28); Vision changes; Elevated blood sugar Discharge Disposition: Home or Self Care 05/19/2025 3:35 PM EDT Office Visit Pulmonology - [place] [address] [facility] [address] [place] [phone] Lauren Garcia NP Eosinophilic asthma (Primary Dx); Severe persistent asthma with acute exacerbation ([facility] V28); Severe persistent asthma without complication ([facility] V28); Upper back pain on right side; Obesity (BMI 30-39.9) 05/13/2025 2:30 PM EDT Office Visit Adult Medicine [facility] [address] [place] [phone] Rogelio Salomon PA Nonintractable episodic headache, unspecified headache type (Primary Dx); Dizziness; Cerebrovascular accident (CVA), unspecified mechanism ([facility] V24, [facility] V28); Vision changes; Elevated blood sugar from Last 3 Months Immunizations Immunization Administration Dates Next Due Influenza Quadrivalent, 0.5m l, preservative free (Fluarix; FluLaval; Fluzone) ages 6mo and older (Afluria) 3yo and older 07/23/2023 Influenza trivalent, 0.5mL, preservative free (Fluarix; FluLaval; Fluzone) ages 6mo and older (Afluria) 3 years and older 08/03/2024,07/24/2023 Influenza trivalent, with pr eservative (Fluzone; Afluria) 6mo and older 10/08/2016 MMR, measles mumps and rubel la Live (Priorix; M-M-R II) 12mo and older 11/14/2023 [employer] SARS-CoV-2 COVID-19, mRNA, LNP-S, preservative free 06/10/2021 Tdap Tetanus diptheria acell ular pertussis (Boostrix; Adacel) 7yo and older 11/03/2020 Varicella live (Varivax) 12mo and older 11/14/19 24 Surgical History Surgery Date Site/Laterality Comments OTHER SURGICAL HISTORY PROCEDURE: DENIES PREVIOUS SURGERY Medical History Medical History Date Comments Asthma DX:Asthma Allergic reaction 2016 DX:Allergic re action; COMMENT: 3 weeks in hospital she was intubated Stroke ([facility] V24, [facility] V28) 2014 DX:Stroke (HCC) Allergic rhinitis DX:Allergic rh initis Obesity (BMI 30-39.9) DX:Obesity (BMI 30-39.9) Hepatic steatosis DX:Hepatic james atosis Family History Medical History Relation Name Comments Breast cancer Aunt Ovarian cancer Aunt No Known Problems Father No Known Problems Maternal Grandfather No Known Problems Maternal Grandmother Hypertension Mother Diabetes Paternal Grandfather No Known Problems Paternal Grandmother Thyroid disease Sister Cancer of Small Bowel Neg Hx Cervical cancer Neg Hx Colon cancer Neg Hx Kidney cancer Neg Hx Uterine cancer Neg Hx Relation Name Status Comments Aunt Father Alive Maternal Grandfather Alive Maternal Grandmother Alive Mother Alive Paternal Grandfather Alive Paternal Grandmother Alive Sister Alive Social History Tobacco Use Types Packs/Day Years Used Date Smoking Tobacco: Never Smokeless Tobacco: Never Tobacco Cessation:Counseling Given: Not Answered Alcohol Use Standard Drinks/Week Comments No 0 (1 standard drink = 0.6 oz pur e alcohol) Comments No Sex and Gender Information Value Date Recorded Sex Assigned at Female 01/11/2025 7:54 AM EDT Legal Sex Female 2:59 AM EST Gender Identity Female 01/11/2025 7:54 AM EDT Sexual Orientation Choose not to disclose 2024 7:54 AM EDT Obstetrics History Last Filed Vital Signs Vital Sign Reading Time Taken Comments Blood Pressure 104/70 05/19/2025 3:11 PM EDT Pulse 71 05/19/2025 3:11 PM EDT Temperature 36.1 C (96.9 F) 05/19/2025 3:11 PM EDT Respiratory Rate 18 05/19/2025 3:11 PM EDT Oxygen Saturation 100% 05/19/2025 3:11 PM EDT Inhaled Oxygen Concentration - - Weight 115 kg (253 lb) 05/19/2025 3:11 PM EDT Height 170.2 cm (5' 7 ) 05/19/2025 3:11 PM EDT Body Mass Index 39.63 05/19/2025 3:11 PM EDT Plan of Treatment Upcoming Encounters Date Type Department Care Team (Late st Contact Info) Description 07/01/2025 11:00 AM EDT Office Visit Adult Medicine [facility] [address] [place] [phone] Jada Robison PA [address] [place] [address] 08/01/2025 4:25 PM EST Office Visit Pulmonology - [place] [address] [phone] Lauren Garcia NP [address] [place] [address] 09/06/2025 2:20 PM EST Office Visit Gastroenterology - [place] [address] [phone] Gwendolyn Gill PA [address] [address] Health Maintenance Due Date Last Done Comments Hepatitis B Vaccines (1 of 3 - 19+ 3-dose series) 2005 Pneumococcal Vaccine: Pediatrics (0 to 5 Years) and At-Risk Patients (6 to 49 Years) (1 of 2 - PCV) 2005 Social Influencers of Health Screening 09/07/2022 Depression Screening 09/29/2024 COVID-19 Vaccine (2 - 2024- season) 2025 06/10/2021 Influenza Vaccine (#1) 2025 , 07/24/2023, 07/23/2023, Additional history exists Cervical Cancer Screening: HPV 09/11/2027 09/11/2022 Cholesterol Screening (Lipid Panel) 10/02/2027 10/02/2022 DTaP,Tdap,and Td Vaccines (2 - Td or Tdap) 11/03/2030 11/03/2020 RSV Immunization Adult Patients (1 - 1-dose 75+ series) 2061 HIV Screening Completed 10/02/2022 Hepatitis C Screening Completed 10/02/2022 MMR Vaccines Aged Out 11/14/2023 No longer eligi ble based on patient's age to complete this topic Varicella Vaccines Aged Out 11/14/2023 No longer eligible based on patient's age to complete this topic HIB Vaccines Aged Out No longer eligi ble based on patient's age to complete this topic HPV Vaccines Aged Out No longer eligi ble based on patient's age to complete this topic Hepatitis A Vaccines Aged Out No long er eligible based on patient's age to complete this topic IPV Vaccines Aged Out No longer eligi ble based on patient's age to complete this topic Meningococcal ACWY Vaccine Aged Out N o longer eligible based on patient's age to complete this topic Meningococcal B Vaccine Aged Out No l onger eligible based on patient's age to complete this topic RSV Immunization Patients Under 20 months Aged Out No longer eligible based on patient's age to complete this topic Procedures Procedure Name Priority Date/Time Associated Diagnosis Comments CT HEAD WO CONTRAST Routine 05/31/2025 1 0:17 AM EDT Nonintractable episodic headache, unspecified headache type Dizziness Cerebrovascular accident (CVA), unspecified mechanism (CMS/HCC V24, CMS/HCC V28) Vision changes Elevated blood sugar CBC WITH AUTO DIFFERENTIAL Routine 05/13/2025 3:13 PM EDT Nonintractable episodic headache, unspecified headache type Dizziness Cerebrovascular accident (CVA), unspecified mechanism (CMS/HCC V24, CMS/HCC V28) Vision changes Elevated blood sugar HEMOGLOBIN A1C Routine 05/13/2025 3:13 PM EDT Nonintractable episodic headache, unspecified headache type Dizziness Cerebrovascular accident (CVA), unspecified mechanism (CMS/HCC V24, CMS/HCC V28) Vision changes Elevated blood sugar CBC AND DIFFERENTIAL Routine 05/13/2025 3:13 PM EDT Nonintractable episodic headache, unspecified headache type Dizziness Cerebrovascular accident (CVA), unspecified mechanism (CMS/HCC V24, CMS/HCC V28) Vision changes Elevated blood sugar COMPREHENSIVE METABOLIC PANEL Routine 05/13/2025 3:13 PM EDT Nonintractable episodic headache, unspecified headache type Dizziness Cerebrovascular accident (CVA), unspecified mechanism (CMS/HCC V24, CMS/HCC V28) Vision changes Elevated blood sugar HEPATITIS C SCREENING Routine 10/02/2022 HIV SCREENING Routine 10/02/2022 LIPID PANEL Routine 10/02/2022 HPV Routine 09/11/2022 from Last 3 Months or Most Recently Relevant to Health Maintenance Results * CT Head wo Contrast (05/31/2025 10:17 AM EDT) Anatomical Region Laterality Modality Head and Neck Computed Tomogra phy 05/31/2025 11:1 5 AM EDT Impressions 05/31/2025 11:16 AM EDT NO ACUTE INTRACRANIAL ABNORMALITY. -------- FINAL REPORT -------- Dictated By: Damion Castillo Dictated Date: 05/31/2025 11:15 ET Assigned Physician: Damion Castillo Reviewed and Electronically Signed By: Damion Castillo Signed Date: 05/31/2025 11:16 ET Workstation ID: [id number] Transcribed By: Self Edit Transcribed Date: 05/31/2025 11:15 ET Narrative 05/31/2025 11:16 AM EDT PROCEDURE: HEAD CT INDICATION: Dizziness, non-specific Headache, intracranial hemorrhage suspected TECHNIQUE: CT of the head without intravenous contrast. Multiplanar reformats. The examination was performed utilizing dose reduction techniques. Total DLP 809 COMPARISON: No priors available. FINDINGS: No acute territorial infarct, mass effect, or intracranial hemorrhage. No significant white matter disease No hydrocephalus. Visualized paranasal sinuses are clear. Mastoid air cells are clear. No calvarial fracture. Procedure Note Damion Castillo MD - 05/31/2025 PROCEDURE: HEAD CT INDICATION: Dizziness, non-specific Headache, intracranial hemorrhage suspected TECHNIQUE: CT of the head without intravenous contrast. Multiplanarreformats. The examination was performed utilizing dose reductiontechniques. Total DLP 809 COMPARISON: No priors available. FINDINGS: No acute territorial infarct, mass effect, or intracranial hemorrhage. No significant white matter disease No hydrocephalus. Visualized paranasal sinuses are clear. Mastoid air cells are clear. No calvarial fracture. IMPRESSION: NO ACUTE INTRACRANIAL ABNORMALITY. -------- FINAL REPORT -------- Dictated By: Damion Castillo Dictated Date: 05/31/2025 11:15 ET Assigned Physician: Damion Castillo Reviewed and Electronically Signed By: Damion Castillo Signed Date: 05/31/2025 11:16 ET Workstation ID: [id number] Transcribed By: Self Edit Transcribed Date: 05/31/2025 11:15 ET Rogelio WEBER [facility] PROCEDURES Final Result * (ABNORMAL) CBC auto differential (05/13/2025 3:13 PM EDT) WBC 10.5 4.8 - 10.8 K/[facility] LAB HEMETOLOGY METHOD 05/13/2025 5:48 PM EDT [facility] RBC 4.20 3.80 - 4.80 M/mcL LAB HEMETOLOGY METHOD 05/13/2025 5:48 PM EDT [facility] Hemoglobin 11.8 11.5 - 16.0 g/dL LAB HEMETOLOGY METHOD 05/13/2025 5:48 PM EDT [facility] Hematocrit 38.4 35.0 - 47.0 % LAB HEMETOLOGY METHOD 05/13/2025 5:48 PM EDT [facility] MCV 90.8 79.0 - 98.0 FL LAB HEMETOLOGY METHOD 05/13/2025 5:48 PM EDT [facility] MCH 27.9 27.0 - 32.0 pcg LAB HEMETOLOGY METHOD 05/13/2025 5:48 PM EDT [facility] MCHC 30.7(L) 32.0 - 37.0 g/dL LAB HEMETOLOGY METHOD 05/13/2025 5:48 PM EDT [facility] RDW 12.4 11.0 - 15.0 % LAB HEMETOLOGY METHOD 05/13/2025 5:48 PM EDT [facility] Platelets 345 130 - 400 K/mcL LAB HEMETOLOGY METHOD 05/13/2025 5:48 PM EDT [facility] MPV 10.1 7.0 - 11.0 FL LAB HEMETOLOGY METHOD 05/13/2025 5:48 PM EDT [facility] NRBC 0.0 <1.0 % LAB HEMETOLOGY METHOD 05/13/2025 5:48 PM EDT [facility] NRBC Absolute 0.00 <0.10 K/mcL LAB HEMETOLOGY METHOD 05/13/2025 5:48 PM EDT [facility] Neutrophils Relative 64.0 % LAB HEMETOLOGY METHOD 05/13/2025 5:48 PM EDT [facility] Lymphocytes Relative 27.7 % LAB HEMETOLOGY METHOD 05/13/2025 5:48 PM EDT [facility] Monocytes Relative 7.8 % LAB HEMETOLOGY METHOD 05/13/2025 5:48 PM EDT [facility] Eosinophils Relative 0.0 % LAB HEMETOLOGY METHOD 05/13/2025 5:48 PM EDT [facility] Basophils Relative 0.2 % LAB [facility] Immature Granulocytes Relative 0.3 % LAB HEMETOLOGY METHOD 05/13/2025 5:[address] [facility] Neutrophils Absolute 6.69 1.50 - 7.00 K/mcL LAB HEMETOLOGY [facility] Lymphocytes Absolute 2.89 1.00 - 5.00 K/mcL LAB HEMETOLOGY METHOD 05/13/2025 5:48 PM EDT [facility] Monocytes Absolute 0.82 0.20 - 1.00 K/mcL LAB HEMETOLOGY METHOD 05/13/2025 5:[address] [facility] Eosinophils Absolute 0.00 0.00 - 0.50 K/mcL LAB HEMETOLOGY METHOD 05/13/2025 5:48 PM EDT [facility] Basophils Absolute 0.02 0.00 - 0.20 K/mcL LAB HEMETOLOGY METHOD 05/13/2025 5:48 PM T [facility] Immature Granulocytes Absolute 0.03 0.00 - 0.03 K/mcL LAB HEMETOLOGY METHOD 05/13/2025 5:[address] [facility] Blood Venous blood specimen / Unknown Venipuncture / Unknown 05/13/2025 3:13 PM EDT 05/13/2025 3:13 PM EDT Rogelio WEBER LAB BLOOD ORDERABLES Final Res ult Performing Organization Address City/[facility]/ZIP Co de Phone Number [facility] [address] [place] [address], [place] [phone] * Hemoglobin A1c (05/13/2025 3:13 PM EDT) Hemoglobin A1C 5.3 <6.5 % LAB CHEMISTRY METHOD 05/13/2025 9:00 PM EDT [facility] Mean Bld Glu Estim. 105 mg/dL LAB CHEMISTRY METHOD 05/13/2025 9:00 PM EDT [facility] Blood Venous blood specimen / Unknown Venipuncture / Unknown 05/13/2025 3:13 PM EDT 05/13/2025 3:13 PM EDT Rogelio WEBER LAB BLOOD ORDERABLES Final Res ult Performing Organization Address [facility]/ZIP Co de Phone Number [facility] [address] [place] [address], [place] [phone] * Comprehensive metabolic panel (05/13/2025 3:13 PM EDT) Pathologist [facility] Sodium 138 133 - 145 mmol/L LAB CHEMISTRY METHOD 05/13/2025 6:07 PM EDT [facility] Potassium 4.3 3.5 - 5.5 mmol/L LAB CHEMISTRY METHOD 05/13/2025 6:07 PM EDT [facility] Chloride 104 96 - 110 mmol/L LAB CHEMISTRY METHOD 05/13/2025 6:07 PM EDT [facility] CO2 30 21 - 32 mmol/L LAB CHEMISTRY METHOD 05/13/2025 6:07 PM EDT [facility] Anion Gap 4 3 - 11 LAB CHEMISTRY METHOD 05/13/2025 6:07 PM EDT [facility] Glucose 77 70 - 100 mg/dL LAB CHEMISTRY METHOD 05/13/2025 6:[address] [facility] BUN 10 5 - 25 mg/dL LAB CHEMISTRY METHOD 05/13/2025 6:[address] [facility] Creatinine 0.85 0.50 - 1.10 mg/dL LAB CHEMISTRY METHOD 05/13/2025 6:[address] [facility] eGFR 90 >=60 mL/min/1. 73m2 LAB CHEMISTRY METHOD 05/13/2025 6:[address] [facility] Comment:Calculation based on the Chronic Kidney Disease Epidemiology Collaboration (CKD-EPI) equation refit without adjustment for race. BUN/Creatinine Ratio 11.8 LAB CHEMISTRY METHOD 05/13/2025 6:[address] [facility] Calcium 9.2 8.5 - 10.5 mg/dL LAB CHEMISTRY METHOD 05/13/2025 6:[address] [facility] AST (SGOT) 15 10 - 42 unit/L LAB CHEMISTRY METHOD 05/13/2025 6:[address] [facility] ALT (SGPT) 23 10 - 60 unit/L LAB CHEMISTRY METHOD 05/13/2025 6:[address] [facility] Alkaline Phosphatase 107 42 - 121 unit/L LAB CHEMISTRY METHOD 05/13/2025 6:[address] [facility] Total Protein 7.4 6.0 - 8.0 g/dL LAB CHEMISTRY METHOD 05/13/2025 6:[address] [facility] Albumin 3.8 3.2 - 5.0 g/dL LAB CHEMISTRY METHOD 05/13/2025 6:[address] [facility] Total Bilirubin 0.2 0.0 - 1.4 mg/dL LAB CHEMISTRY METHOD 05/13/2025 6:[address] [facility] Blood Venous blood specimen / Unknown Venipuncture / Unknown 05/13/2025 3:13 PM EDT 05/13/2025 3:13 PM EDT Rogelio WEBER LAB BLOOD ORDERABLES Final Res ult [facility] ([facility] [address] [place] [address], [place] [phone] * HIV Screening (10/02/2022) Pathologist [facility] HIV Screening ABSTRACTED Historical Provider HEALTH MAINTENANCE Final Result * Hepatitis C Screening (10/02/2022) Pathologist [facility] Hepatitis C Screening ABSTRACTED Historical Provider HEALTH MAINTENANCE Final Result * Lipid panel (10/02/2022) [facility] LDL/HDL Ratio 3 0 - 4 Triglycerides 71 0 - 150 mg/dL Cholesterol 152 0 - 200 mg/dL HDL 54 >=40 mg/dL LDL Cholesterol 84 0 - 100 mg/dL Blood Venous blood specimen / Unknown Historical Provider LAB BLOOD ORDERABLES Hoa l Result * Cervical Cancer Screening: HPV (09/11/2022) Pathologist [facility] Cervical Cancer Screening: HPV NEGATIVE, ABSTRACTED Historical Provider HEALTH MAINTENANCE Final Result from Last 3 Months or Most Recently Relevant to Health Maintenance Insurance [facility] [employer] Care Teams Mine Car Dispatcher Relationship Specialty Start Date End Date Thadisina, Faiza Lewis, MD [address] [place] [address] PCP - General Internal Medicine 01/21/22
[2025-06-26 19:23] VITALS: BP 134/60; PULSE 68; RESP 17; TEMP 36.6; O2SAT 99
== END 2025-06-26 19:31 | disposition home or self-care (01) ==
PROVIDERS: Nurse Practitioner Family; Emergency Provider Emergency Medicine Emergency Medical Services
DX: R42 Dizziness and giddiness (principal); R11.2 Nausea with vomiting, unspecified; Z86.73 Personal history of transient ischemic attack (TIA), and cerebral infarction without residual deficits; Z79.899 Other long term (current) drug therapy
CPT/HCPCS: 36415; 80048; 84484; 85025; 93005; 96360; 99283; 99284

== ENCOUNTER → 2025-06-26 15:28 | Outpatient (BNV) | payer OTHER, SELFPAY | PROVIDERS: Emergency Provider Emergency Medicine Emergency Medical Services; Visit Provider Internal Medicine Cardiovascular Disease | DX: R42 Dizziness and giddiness (principal) | CPT/HCPCS: 93010 ==